=== PATIENT | female | born 1950 | race Caucasian/White ===

== ENCOUNTER → 2016-07-01 | Day surgery (SDC) | payer OTHER ==
[2016-06-30 10:26] VITALS: Ht 161.3 cm; Wt 112.7 kg
[~2016-07-01] VITALS: Ht 161.3 cm; Wt 112.7 kg
[~2016-07-01] MED LIST: ACET-749 PO; ACETAMINOPHEN/CODEINE 300/30MG TAB PO PRN; AMOX500C3 PO; ATROPINE SULFATE 0.1 MG/ML 5ML SYR IV PRN; BRIM0.1S OPR; BUPIVACAINE 0.5 % 5 MG/1 ML MPF 30ML VIAL ONE; CEFAZOLIN 2000 MG/60 ML D5W 60 ML IV SCH; CHOL2000 PO; CITA20TA PO; FENTANYL CITRATE INJ 50 MCG/1 ML 2 ML VIAL IV PRN; FENTANYL CITRATE INJ 50 MCG/1 ML 2 ML VIAL ONE; FERR325T5 PO; FLUT0.15 NAE; FLUT1INH INH; FURO-85 PO; IBUP-1050 PO; INSDGI SC; IPRASOL4 INH; LACTATED RINGER'S 1000ML 1,000 ML IV SCH; LIDOCAINE HCL 2% LOCAL 20 ML VIAL ONE; LOSA50TA6 PO; LOVA20TA4 PO; MECL1TAB40 PO; MELO15TA4 PO; METF1000 PO; MIDAZOLAM HCL 1 MG/ML 2ML VIAL ONE; MONT1TAB5 PO; MULTTAB58 PO; OMEP40CA41 PO; ONDA4TAB46 PO; ONDANSETRON INJ 2 MG/ML 2 ML VIAL IV PRN; PROPOFOL IV EMULSION 10 MG/ML 20 ML VIAL IV ONE; SODIUM CHLORIDE 0.9% 1000ML 1,000 ML IV SCH; TERA1CAP63 PO; TIMO0.05 OPR; TIZA4CAP PO; TRAV0.00 OPR; VALA1TAB2 PO
--- NOTE | 2016-07-01 06:57 | History & Physical Bridge - [place] ---
H&P Re-Evaluation Bridge Note: I have examined the patient, reviewed the History & Physical and in the interval since the performance of the History & Physical I have noted the following changes of clinical significance: No changes noted
--- NOTE | 2016-07-01 08:19 | [facility] Post Operative Brief Note ---
Immediate Operative Summary Operative Date Jul 01, 2016. Pre-Operative Diagnosis Left Long Trigger Finger Release Post-Operative Diagnosis same Procedure(s) Performed Left Long Trigger Finger Release Surgeon Dr. Myriam Bauer [employer] Surgeon(s) Vinicio Hugo PA-C Estimated Blood Loss minimal Findings Left Long Trigger Finger Specimens none Anesthesia Local with IV Sedation Complication(s) None Disposition Recovery Room / PACU
--- NOTE | 2016-07-01 08:23 | Discharge Instructions-SurgCtr ---
Discharge Instructions Visit Reason for Visit: Acquired Left Long Trigger Finger Discharge Discharge Diagnosis / Problem: left long finger trigger finger Discharge Goals Goal(s): Decrease discomfort, Therapeutic intervention Medications Stopped Medications Name(s): metformin stopped. last dose on wednesday morning. Activity Recommendations limited use of left hand Anesthesia . Post Anesthesia Instructions: If you have had General Anesthesia or IV Sedation: * Do not drive today. * Resume driving when surgeon permits. * Do not make important decisions or sign legal documents today. * Call surgeon for: 1. Temperature elevations greater than 101 degrees F. 2. Uncontrollable pain. 3. Excessive bleeding. 4. Persistent nausea and vomiting. 5. Medication intolerance (nausea, vomiting or rash). * For nausea and vomiting use only clear liquids such as: tea, soda, bouillon until nausea subsides, then gradually increase diet as tolerated. * If you have any concerns or questions, call your surgeon's office. If physician is unavailable and it is an emergency, call 911 or go to the nearest emergency room. . Instructions / Follow-Up Instructions / Follow-Up MEDICATIONS: * Resume previous medications unless instructed otherwise by your surgeon. * Always take pain medication on a full stomach or with food to avoid upset stomach. * Do not drink alcohol or drive while taking narcotics. * Ibuprofen or Tylenol may be taken if narcotic not needed. SPECIAL CARE INSTRUCTIONS: __ None __ Keep extremity elevated and iced x 48 hours; apply ice 20-30 minutes 8-10 times/day. May remove at night. __ Sling __24 hrs/day __ Remove at night __ Shoulder Immobilizer __ 24 hrs/day __ Remove at night _x_ Dressing _x_ Maintain until seen in office, may shower with plastic over site __ Remove dressings in 24-48 hours and then may shower __ Cover incisions with band-aids after showering __ Do not remove steri-strips Call physician if chills or temperature rises above 102 degrees or pain unrelieved by prescribed pain medications at . . follow up 2 weeks Diet Recommendations Home Diet: resume previous diet Procedures Procedures Performed: Left Long Trigger Finger Release Pending Studies Studies pending at discharge: no Medical Emergencies . Who to Call and When: Medical Emergencies: If at any time you feel your situation is an emergency, please call 911 immediately. . Non-Emergent Contact Non-Emergency issues call your: Primary Care Provider, Surgeon . . "Provider Documentation" section prepared by Nav Hugo.
[2016-07-01 08:24] VITALS: TEMP 36.4
--- NOTE | 2016-07-01 08:49 | Anesthesia Progress Nt - [facility] ---
Anesthesia Post Op Note Date & Time Jul 01, 2016 at 08:49 Vital Signs Pain Intensity: 0 Vital Signs Past 12 Hours Date Time Temp Pulse Resp B/P Pulse Ox O2 Delivery O2 Flow Rate FiO2 07/01/16 08:24 36.4 81 16 161/77 94 Room Air 07/01/16 06:43 37.1 73 18 147/82 95 Room Air Notes Mental Status: alert / awake / arousable, participated in evaluation Pt Amnestic to Procedure: Yes Nausea / Vomiting: adequately controlled Pain: adequately controlled Airway Patency, RR, SpO2: stable & adequate BP & HR: stable & adequate Hydration State: stable & adequate Anesthetic Complications: no major complications apparent
[2016-07-01 08:50] VITALS: BP 154/84; PULSE 70; O2SAT 95
--- NOTE | 2016-07-01 09:07 | OPERATIVE REPORT ---
DATE OF OPERATION: 07/01/2016 SURGEON: Prabhu Bauer MD BACKUP ADMINISTRATIVE COORDINATOR: JUSTICE Holland PREOPERATIVE DIAGNOSIS: Left long trigger finger. POSTOPERATIVE DIAGNOSIS: Same. PROCEDURE PERFORMED: Left long trigger finger/A1 juan daniel release. COMPLICATIONS: None. ESTIMATED BLOOD LOSS: Minimal. TOURNIQUET TIME: 5 minutes at 250 mmHg. ANESTHESIA: Local with IV sedation. OPERATIVE INDICATIONS: The patient is a 66-year-old female diabetic patient who had a history of carpal tunnel problems as well as trigger finger problems in the past. She has undergone bilateral carpal tunnel releases in the past and had trigger finger release in the past as well. She developed pain, discomfort, and locking of her long finger. She had no interest in further conservative treatment and elected to proceed with operative treatment of her trigger finger of the long finger. OPERATIVE PROCEDURE: The patient was taken to the operating room, identified and placed on the operating table in supine position. All contact areas were appropriately padded. IV antibiotics provided by anesthesia team. A left forearm tourniquet was placed. Some IV sedation was provided. 8 mL of 50:50 combination of 0.5% Marcaine and 2% lidocaine were then injected in and around the proposed incision site. The left hand was then prepped and draped in usual sterile fashion. The left arm was elevated and exsanguinated with Esmarch and tourniquet was placed at 250 mmHg. A transverse incision was made in the palm at the base of the long finger in between the proximal and distal palmar creases. Blunt dissection was carried through the subcutaneous tissue directly down the flexor tendon sheath. The flexor tendon sheath was cleaned of soft tissues. The A1 juan daniel was identified and transected with the use of scissors and then bluntly spread. The finger was then taken through an active and active assisted range of motion. There was no further catching or locking. Attention was then drawn toward closing. The wound was irrigated with copious amounts of normal saline. The tourniquet was let down for a tourniquet time of 5 minutes. Hemostasis was assured with use of electrocautery. The skin was then closed with 5-0 nylon suture in a horizontal mattress fashion. The hand was then cleaned and dried and a sterile dressing of Xeroform, 4 x 4, sterile cast padding and Farhat bandage were applied. The patient was then transferred to the recovery room in stable condition. The patient tolerated the procedure well with no complications. All needle and sponge counts were correct at the end of the operation. I attest to the content of the Intraoperative Record and any orders documented therein. Any exceptions are noted below. MTDD
== END | disposition home or self-care (01) ==
LOC: X.SURG 06:25
PROVIDERS: ATTEND Orthopaedic Surgery Sports Medicine
DX: M65.332 Trigger finger, left middle finger (principal); E03.9 Hypothyroidism, unspecified; E11.9 Type 2 diabetes mellitus without complications; I10 Essential (primary) hypertension; J45.909 Unspecified asthma, uncomplicated; I78.0 Hereditary hemorrhagic telangiectasia

== ENCOUNTER 2017-06-20 17:30 | Emergency (ER) | payer OTHER ==
[~2017-06-20] VITALS: Ht 161.3 cm; Wt 120.2 kg
[~2017-06-20 17:30] MED LIST changes: -ACET-749 PO; -ACETAMINOPHEN/CODEINE 300/30MG TAB PO PRN; -ATROPINE SULFATE 0.1 MG/ML 5ML SYR IV PRN; -BUPIVACAINE 0.5 % 5 MG/1 ML MPF 30ML VIAL ONE; -CEFAZOLIN 2000 MG/60 ML D5W 60 ML IV SCH; -FENTANYL CITRATE INJ 50 MCG/1 ML 2 ML VIAL IV PRN; -FENTANYL CITRATE INJ 50 MCG/1 ML 2 ML VIAL ONE; -IBUP-1050 PO; -LACTATED RINGER'S 1000ML 1,000 ML IV SCH; -LIDOCAINE HCL 2% LOCAL 20 ML VIAL ONE; +MELO-84 PO; -MELO15TA4 PO; -MIDAZOLAM HCL 1 MG/ML 2ML VIAL ONE; -ONDANSETRON INJ 2 MG/ML 2 ML VIAL IV PRN; -PROPOFOL IV EMULSION 10 MG/ML 20 ML VIAL IV ONE; -SODIUM CHLORIDE 0.9% 1000ML 1,000 ML IV SCH
[2017-06-20 17:31] VITALS: TEMP 36.7; Ht 161.3 cm; Wt 120.2 kg
[2017-06-20] MEDS ORDERED: XYLOCAINE 1%/SOD BICARB 20 ML VIAL INFIL STA (17:48)
--- NOTE | 2017-06-20 18:35 | DIAGNOSTIC IMAGING REPORT ---
HEAD CT NONCONTRAST CT DOSE: 877.40 mGy.cm HISTORY: Fall, head and nose pain TECHNIQUE: Multiaxial CT images of the head were performed without the use of intravenous contrast. Automated exposure control was utilized for this study. A dose lowering technique was utilized adhering to the principles of ALARA. Comparison: None. Findings: The paranasal sinuses and mastoid air cells are clear. The calvarium and skull base are intact. There is no mass, hematoma, midline shift, acute infarct. White matter hypodensity is nonspecific but suggestive of microvascular ischemic change. The ventricles and sulci demonstrate mild age-related involutional changes. Soft tissue swelling and a small laceration at the nasal bridge. Impression: No acute intracranial abnormality. Soft tissue swelling and a small laceration at the nasal bridge. Electronically signed by: Luan Ospina M.D. 06/20/2017 6:33 PM Dictated Date/Time: 06/20/2017 6:30 PM
--- NOTE | 2017-06-20 18:38 | DIAGNOSTIC IMAGING REPORT ---
MAXILLOFACIAL CT CT DOSE: HISTORY: Fall, head and nose pain TECHNIQUE: Multiaxial CT images of the maxillofacial region were performed and reformatted in the coronal plane without the use of contrast. A dose lowering technique was utilized adhering to the principles of ALARA. COMPARISON: None. FINDINGS: The visualized cervical spine, skull base, pterygoid plates, lamina papyracea, orbital floors, mandible, and zygomatic arches are intact. No fractures. The orbits are unremarkable. Soft tissue swelling and a small laceration at the nasal bridge. Nondisplaced fracture the tip of the nasal bones. IMPRESSION: 1. Nondisplaced nasal bone fracture. 2. Soft tissue swelling and a small laceration at the nasal bridge. Electronically signed by: Luan Ospina M.D. 06/20/2017 6:37 PM Dictated Date/Time: 06/20/2017 6:34 PM
--- NOTE | 2017-06-20 19:11 | EMERGENCY ROOM VISIT NOTE ---
History First contact with patient: 17:40 Chief Complaint: FALL Stated Complaint: FELL ON NOSE History of Present Illness Chief Complaint: "Fell on nose". This patient is a 67 year old female who presents to the Emergency Department via private vehicle accompanied by female for evaluation of their nasal bridge laceration. Patient sustained the laceration while attempting to descend a grassy area when she tripped, fell landing on her face. They report a minimal amount of bleeding initially. They report no loss of consciousness. They deny any headache, visual disturbance, nausea, vomiting, or neck pain. Patient rates her current discomfort as a 5/10. Patient's Tetanus status is currently up-to- date. Review of Systems A complete 6-point Review of Systems was discussed with the patient, with pertinent positives and negatives listed in the History of Present Illness. All remaining Review of Systems questions can be considered negative unless otherwise specified. Past Medical/Surgical History Medical Problems: (1) Cataract (2) Depression (3) Diabetes (4) Dyslipidemia (5) Gastroparesis (6) GERD (gastroesophageal reflux disease) (7) Hypertension (8) Sensorineural hearing loss (9) Sleep apnea Surgical Problems: (1) H/O parathyroidectomy (2) History of appendectomy (3) History of arthroplasty of right knee (4) History of carpal tunnel release (5) History of cholecystectomy (6) History of mastectomy, subtotal (7) History of tonsillectomy and adenoidectomy (8) History of tubal ligation Family History Cancer Diabetes mellitus Hypertension Seizures Social History Smoking Status: Never Smoker Alcohol Use: none Drug Use: none Marital Status: Housing Status: lives with significant other Occupation Status: unemployed Current/Historical Medications Scheduled Brimonidine Tartrate (Alphagan P Oph), 1 DROP OPR BID Cephalexin Monohydrate (Keflex), 500 MG PO TID Cholecalciferol (Vitamin D3), 1 CAP PO BID Citalopram (Citalopram), 20 MG PO HS Ferrous Sulfate (Ferrous Sulfate), 1 TAB PO BID Furosemide (Lasix), 0.5 TAB PO QAM Insulin Glargine (Lantus), 30 UNITS SC HS Losartan Potassium (Cozaar), 50 MG PO HS Lovastatin (Mevacor), 20 MG PO HS Metformin Hcl (Glucophage), 1,000 MG PO BID Montelukast Sodium (Montelukast Sodium), 10 MG PO HS Multiple Vitamin (Multivitamin), 1 TAB PO QAM Omeprazole (Prilosec), 40 MG PO BID Terazosin Hcl (Hytrin), 10 MG PO HS Timolol Maleate (Ophth) (Timoptic 0.25% Oph), 1 DROP OPR QAM Travoprost (Travatan Z), 1 DROPS OPR HS Scheduled PRN Amoxicillin (Amoxil), 4 TABS PO UD PRN for DENTAL PROCEDURES Fluticasone Furoate-Vilanterol (Breo Ellipta), 1 PUFF INH HS PRN for Shortness of Breath Fluticasone Propionate (Nasal) (Flonase Allergy Relief), 2 SPRY SHALONDA DAILY PRN for ALLERGIES Ipratropium-Albuterol (Duoneb), 1 TREATMENT INH Q6H PRN for SOB/Wheezing Meclizine Hcl (Meclizine Hcl), 1 TAB PO TID PRN for VERTIGO Meloxicam (Mobic), 15 MG PO DAILY PRN for Muscle Spasms Ondansetron Hcl (Zofran), 4 MG PO Q4H PRN for Nausea Tizanidine Hcl (Zanaflex), 4 MG PO Q4-6H PRN for Muscle Spasms Valacyclovir Hcl (Valtrex), 1,000 MG PO UD PRN for COLD SORES Physical Exam Vital Signs Date Time Temp Pulse Resp B/P (MAP) Pulse Ox O2 Delivery O2 Flow Rate FiO2 06/20/17 19:25 85 18 176/99 95 06/20/17 17:31 36.7 91 18 202/117 97 Room Air Physical Exam VITAL SIGNS - Vital signs and nursing notes were reviewed. Hypertensive, I believe secondary to situation. GENERAL -67-year-old female appearing her stated age. Communicates well with provider and answers questions appropriately. SKIN - There is a 2 cm laceration noted to the bridge of the nose in the horizontal plane. The edges gape apart with traction. There is no active bleeding appreciated. No deep structures including vessels, musculature, or bony structures are appreciated. Abrasions are also noted to the patient's distal nose as well as her chin. HEAD - Normocephalic. No King's Sign or Raccoon's Eyes. No depressed skull fractures palpable. EYES - PERRL with EOMI bilaterally. Without subconjunctival hemorrhage. Palpebral conjunctiva pink and moist with no injection. EARS - No deformities of external structures noted on gross examination bilaterally. No hemotympanum present. No tympanic perforation noted. NOSE - Midline and without cyanosis. No epistaxis or clear watery discharge noted. Septum midline without deviation. No septal hematoma noted. No overlying ecchymosis noted. MOUTH/OROPHARYNX - Without perioral cyanosis. Tongue midline with equal elevation of palate bilaterally. No blood noted in the oropharynx. No tonsillar hypertrophy, erythema, or exudates noted. No dental fractures noted. NECK - FROM assessed. No tenderness to palpation over the cervical spinous processes. No cervical paraspinal muscle tenderness noted. LUNGS - Chest wall symmetric without accessory muscle use, intercostals retractions, or central cyanosis. Normal vesicular breath sounds CTA B/L. No wheezes, rales, or rhonchi appreciated. CARDIAC - RRR with S1/S2. No murmur, rubs, or gallops appreciated. EXTREMITIES - No gross deformities noted of the extremities. +5/5 strength noted in UE/LE bilaterally. NEUROLOGIC - Cranial nerves II through XII grossly intact. PSYCH - A&Ox3 and cooperates fully with examiner. Pt is very pleasant and interacts well with examiner. Medical Decision & Procedures ER Provider Diagnostic Interpretation: HEAD CT NONCONTRAST CT DOSE: 877.40 mGy.cm HISTORY: Fall, head and nose pain TECHNIQUE: Multiaxial CT images of the head were performed without the use of intravenous contrast. Automated exposure control was utilized for this study. A dose lowering technique was utilized adhering to the principles of ALARA. Comparison: None. Findings: The paranasal sinuses and mastoid air cells are clear. The calvarium and skull base are intact. There is no mass, hematoma, midline shift, acute infarct. White matter hypodensity is nonspecific but suggestive of microvascular ischemic change. The ventricles and sulci demonstrate mild age-related involutional changes. Soft tissue swelling and a small laceration at the nasal bridge. Impression: No acute intracranial abnormality. Soft tissue swelling and a small laceration at the nasal bridge. Electronically signed by: Luan Ospina M.D. 06/20/2017 6:33 PM Dictated Date/Time: 06/20/2017 6:[address] DOSE: HISTORY: Fall, head and nose pain TECHNIQUE: Multiaxial CT images of the maxillofacial region were performed and reformatted in the coronal plane without the use of contrast. A dose lowering technique was utilized adhering to the principles of ALARA. COMPARISON: None. FINDINGS: The visualized cervical spine, skull base, pterygoid plates, lamina papyracea, orbital floors, mandible, and zygomatic arches are intact. No fractures. The orbits are unremarkable. Soft tissue swelling and a small laceration at the nasal bridge. Nondisplaced fracture the tip of the nasal bones. IMPRESSION: 1. Nondisplaced nasal bone fracture. 2. Soft tissue swelling and a small laceration at the nasal bridge. Electronically signed by: Luan Ospina M.D. 06/20/2017 6:37 PM Dictated Date/Time: 06/20/2017 6:34 PM Medications Administered Medications (Trade) Dose Ordered Sig/Shruthi Route Start Time Stop Time Status Last Admin Dose Admin Cephalexin Monohydrate (Keflex 500MG Home Pack) 1 homepack NOW STAT PO 06/20/17 19:18 06/20/17 19:19 DC 06/20/17 19:25 1 HOMEPACK Medical Decision Patient was seen and evaluated by myself. Patient had no focal neurological deficits. Patient's exam is otherwise unremarkable. Patient reports no headaches , visual disturbances, nausea, vomiting, or over-lethargy. However, given the mechanism of injury I we'll recommend CT scan of the patient's head and face. Results as above. Risks and benefits of performing primary wound closure versus no repair were discussed with the patient who verbalizes understanding. Verbal consent was obtained prior to performing the procedure. 2 cc of 1% buffered lidocaine was used to anesthetize the 2 cm laceration. The wound was cleansed and prepped in the typical sterile fashion utilizing normal saline and Betadine. The wound was sterilely draped. Once proper anesthetization was established, the wound was further examined and demonstrated no deep involvement. The wound was copiously irrigated with normal saline and Betadine. The wound was closed using 3 simple, 6-0 nylon sutures with the wound edges being well approximated. Patient tolerated the procedure well. No complications were met. The wound was cleansed and dressed with a Bacitracin dressing. Patient educated on worrisome symptoms for return visit to the Emergency Department. Patient discharged to home in good condition. Because of the fracture underlying I will recommend Keflex. In the evaluation and treatment of this patient, the following differential diagnoses were considered: Concussion, Contrecoup Injury, Brain Tumor, Depression, Encephalitis, Hypothyroidism, Meningitis, CVA, TIA, Migraine, Cluster Headache, Intracranial Abnormality, Intracranial Hemorrhage, Subdural Hematoma, Subarachnoid Hemorrhage, Hydrocephalus. Impression Primary Impression: Fall Additional Impressions: Contusion of multiple sites Laceration Nasal bone fracture Departure Information Dispostion Home / Self-Care Condition GOOD Prescriptions Cephalexin Monohydrate (Keflex) 500 Mg Cap 500 MG PO TID for 7 Days, #21 CAP Prov: Hugo De Santiago PA-C 06/20/17 Referrals Génesis Sandhu D.O. (PCP) Patient Instructions My [facility] Additional Instructions Discharge Instructions: You have received 3 sutures on your nose. These sutures are NOT dissolvable and WILL need to be removed by a health care provider in 6 days. You can return to the Emergency Department or contact your Primary Care Provider to have the sutures removed. ENT (ear nose and throat dr) follow up for nose (Dr. parrish) please call tomorrow for nose fracture Keflex 500mg every 8 hours to help prevent infection of nose. Proper wound care is essential for adequate wound healing and infection prevention. You can shower and clean the wound with soap and water. Do not scour over the wound, pat dry with a towel. Do not submerse the wound (i.e. bathe or dish wash) until the sutures have been removed. You can use an antibiotic ointment with a dressing over the wound for the next 2-3 days. After this time you may leave the wound dry and open to the air. If crust develops over the wound you can use a Q-tip to apply a 1:1 peroxide:water solution to clean the wound. Look for signs of infection of the wound including: increased pain, swelling, foul discharge, streaking, or increased temperature. If any of these are noticed you should return to the Emergency Department for further assessment and treatment. As with any laceration you may have received nerve damage to the surrounding tissues. This damage may or may not be permanent. You should keep the area covered with sunscreen for the first 6 months to 1 year when at risk for exposure to help minimize scarring. You can also use scar reducing creams or Vitamin E oil to help minimize scarring. For pain control, you can use the following [id number] medicines (if >12 yo): - Regular strength (325mg/tab) Tylenol (acetaminophen) 2 tabs every 4-6 hours as needed. Do not exceed 12 tablets in a 24 hour period. Avoid taking more than 3 grams (3000 mg) of Tylenol per day. This includes any other sources of acetaminophen you may take on a regular basis. Return to the emergency department if your symptoms worsen despite treatment course outlined above. Problem Qualifiers
[2017-06-20] MEDS ORDERED: CEPHALEXIN 500MG HOME PACK 1 EA BTL PO STA (19:18)
[2017-06-20] MEDS ORDERED: CEPH500C PO (19:20)
[2017-06-20 19:25] VITALS: BP 176/99; PULSE 85; O2SAT 95
--- NOTE | 2017-06-20 19:42 | EMERGENCY ROOM VISIT NOTE ---
ED Visit Note First contact with patient: 17:40 This Patient was discussed with the physician registered medical assistant, Hugo De Santiago PA-C. The pertinent historical and physical exam findings were confirmed. I agree with the studies ordered and with the interpretations of these studies. I agree with the disposition and care plan.
== END 2017-06-20 19:46 | disposition home or self-care (01) ==
LOC: C.EDB 17:31 → C.EDD 19:46
DX: S00.81XA Abrasion of other part of head, initial encounter (principal); S00.31XA Abrasion of nose, initial encounter; S01.21XA Laceration without foreign body of nose, initial encounter; S02.2XXA Fracture of nasal bones, initial encounter for closed fracture; W01.0XXA Fall on same level from slipping, tripping and stumbling without subsequent striking against object, initial encounter; H26.9 Unspecified cataract; F32.9 Major depressive disorder, single episode, unspecified; E78.5 Hyperlipidemia, unspecified; K21.9 Gastro-esophageal reflux disease without esophagitis; I10 Essential (primary) hypertension; E11.43 Type 2 diabetes mellitus with diabetic autonomic (poly)neuropathy; Z90.10 Acquired absence of unspecified breast and nipple; Z90.49 Acquired absence of other specified parts of digestive tract; Z98.51 Tubal ligation status; Z79.4 Long term (current) use of insulin; Z79.84 Long term (current) use of oral hypoglycemic drugs; Z83.3 Family history of diabetes mellitus; Z82.49 Family history of ischemic heart disease and other diseases of the circulatory system; Z82.0 Family history of epilepsy and other diseases of the nervous system

== ENCOUNTER 2025-03-12 14:07 | Inpatient (IN) ==
--- NOTE | 2025-03-12 14:25 | Emergency Department Note ---
Impression & Plan Atrial fibrillation with rapid ventricular response, Demand ischemia, Elevated troponin, Dizziness ED Provider Note NAME: DUC ECHOLS AGE: 74 SEX: F : 1950 ARRIVES VIA: Walk-In INFORMANT: Patient, ED PROVIDER(S): Hans Hernandez MD CHIEF COMPLAINT: Dizziness, A-fib, outpatient referral MEDICAL DECISION MAKING: Patient presents due to concern for tachycardia and outpatient A-fib and was referred here. IV was established and blood work is obtained. Patient was ordered IV Lopressor. EKG without signs of obvious ischemia. Patient's blood work today shows a normal white count hemoglobin of 10. No priors for comparison. Platelet count is unremarkable. Kidney function with prerenal azotemia. Calcium slightly elevated magnesium slightly low. Patient was ordered 1 g of IV magnesium for replacement. Patient's IV Lopressor did help with the patient's rate from the 140s and 150s down into the 90s. Patient's troponin is 137 likely demand ischemia from the patient's rate as this may have been ongoing since Wednesday. I did speak with the on-call hospitalist service Dr. Navarro and the patient was admitted to the medicine service. Critical Care: I have personally spent 45 minutes of critical care time in direct management of this patient. This includes bedside care, interpretation of diagnostic studies, and testing, discussion with consultants, patient, and family members, and other require inpatient management activities. This 45 minutes is in excess of all separately billable procedures. Discussion w/ other healthcare providers: Marybeth Ward PA-C with Dr. Navarro Prior /Outside records reviewed: None Differential diagnosis: Dehydration, hypovolemia, anemia, infection, hypoglycemia, electrolyte abnormalities, arrhythmia, tox among others were considered. Diagnostics, as interpreted by me: ECG: A-fib RVR, rate 148, normal QRS duration, left axis deviation no obvious STEMI. Repeat EKG interpreted by myself A-fib, rate of 97, normal QRS duration, left axis deviation no obvious STEMI. Cardiac monitoring: An order was placed for continuous cardiac monitoring. The monitor shows a rate of 145 with irregularly irregular rhythm. Patient was placed on pulse oximetry Medical decision rules: None Imaging studies: I informally interpreted the patient's chest x-ray does not show evidence of obvious pneumonia with formal report to follow. HPI: Patient presents due to concern for lightheadedness and dizziness. The patient was reportedly seen at [facility] and referred here due to concerns for A-fib. No prior history of this. The patient states that she began having symptoms on Wednesday when she had some palpitations lightheadedness and dizziness with some shortness of breath. No chest pains. Patient denies any abdominal pain or nausea vomiting. Patient does have a history of asthma and did state that the room that she was be carrots and was quite warm. The patient did not use her rescue inhaler but does use a Rommel. Patient denies any falls or trauma. No vomiting or diarrhea. Patient reports that she cannot take a blood thinner or aspirin as she has a history of Opchj-[id number]-Boesh. PAST MEDICAL HISTORY: See Below PAST SURGICAL HISTORY: See Below SOCIAL HISTORY: See Below HOME MEDICATIONS: See Below ALLERGIES: See Below VITALS: See Below PHYSICAL EXAMINATION: GENERAL: NAD, non-toxic. EYE EXAM: Normal conjunctiva. PERRL, no anisocoria and EOM's grossly intact w/o pain. OROPHARYNX: Moist mucus membranes, grossly normal dentition. NECK: Trachea midline, no stridor. LUNGS: Clear to auscultation. Normal chest wall mechanics. HEART: Irregularly irregular and tachycardic, no MRG. ABDOMEN: Abdomen soft, non-tender, no masses, no rebound or guarding. BACK: No CVA TTP. SKIN: No rashes and no bruising. UPPER EXTREMITIES: Upper extremities are grossly normal. LOWER EXTREMITIES: Grossly normal, no edema. NEURO EXAM: Awake and alert, follows commands, no obvious facial asymmetry, normal speech, moves all 4 extremities. Past Med/Surg History Problem List HHT (hereditary hemorrhagic telangiectasia) Atrial fibrillation with rapid ventricular response Hypertension (Chronic) Diabetes (Chronic) GERD (gastroesophageal reflux disease) (Chronic) Sensorineural hearing loss (Chronic) Sleep apnea (Chronic) "uses CPAP" Cataract (Chronic) "R eye" Gastroparesis (Chronic) Depression (Chronic) Dyslipidemia (Chronic) Encounter for removal of sutures (Acute) Social History Smoking Status: Never smoker Preferred Language: Macedonian Feels Safe at Home: Yes Allergies Allergies Allergy/AdvReac Type Severity Reaction Status Date / Time aspirin Allergy Unknown OSLER Verified 03/12/25 13:07 BROWN RENDU DISORDER oxycodone AdvReac Unknown vomiting Verified 03/12/25 13:07 cefdinir [From Omnicef] AdvReac NAUSEA AND Verified 03/12/25 16:29 VOMITING cetirizine [From Zyrtec] AdvReac Cough Verified 03/12/25 16:29 Cockroach Allergy Unknown ALLERGY Uncoded 03/12/25 13:07 TESTED - UNSURE REACTION Home Meds Home Medications Medication Instructions Recorded Confirmed escitalopram oxalate 10 mg tablet 10 mg PO QAM 03/04/24 03/12/25 insulin glargine 100 unit/mL (3 50 unit subcut AMPM 03/04/24 03/12/25 mL) subcutaneous pen (Lantus Solostar U-100 Insulin) semaglutide 1 mg/dose (4 mg/3 mL) 1 mg subcut WK 03/04/24 03/12/25 subcutaneous pen injector (Ozempic) tolterodine 4 mg capsule,extended 4 mg PO QAM 03/04/24 03/12/25 release 24 hr atorvastatin 20 mg tablet (Lipitor) 20 mg PO DAILY 03/12/25 03/12/25 azelastine 137 mcg (0.1 %) nasal 1 spray intranasal AMHS 03/12/25 03/12/25 spray brinzolamide 1 %-brimonidine 0.2 % 1 drp OPR TID 03/12/25 03/12/25 eye drops,suspension (Simbrinza) cholecalciferol (vitamin D3) 25 25 mcg PO AMHS 03/12/25 03/12/25 mcg (1,000 unit) capsule (Vitamin D3) ferrous sulfate 325 mg (65 mg 325 mg PO AC 03/12/25 03/12/25 iron) tablet furosemide 20 mg tablet 10 mg PO QAM 03/12/25 03/12/25 ipratropium 0.5 mg-albuterol 3 mg 3 ml inhalation .EVERY 4-6 HOURS 03/12/25 03/12/25 (2.5 mg base)/3 mL nebulization PRN COUGHING,WHEEZING OR SOB soln ipratropium 20 mcg-albuterol 100 1 puff inhalation Q6 PRN 03/12/25 03/12/25 mcg/actuation mist for inhalation wheezing,cough or SOB (Combivent Respimat) losartan 100 mg tablet (Cozaar) 100 mg PO DAILY 03/12/25 03/12/25 metformin 1,000 mg tablet 1,000 mg PO BIDM 03/12/25 03/12/25 metoprolol succinate 25 mg 25 mg PO QAM 03/12/25 03/12/25 tablet,extended release 24 hr montelukast 10 mg tablet 10 mg PO QAM 03/12/25 03/12/25 multivit-iron 18 mg-folic acid 400 1 tab PO DAILY 03/12/25 03/12/25 mcg-calcium 500 mg-minerals tablet (Daily Multiple For Women) netarsudil 0.02 % eye drops 1 drp OPR QPM 03/12/25 03/12/25 (Rhopressa) pantoprazole 40 mg tablet,delayed 40 mg PO DAILYBB 03/12/25 03/12/25 release prednisone 10 mg tablet 5 mg PO QAM 03/12/25 03/12/25 terazosin 10 mg capsule 10 mg PO HS 03/12/25 03/12/25 timolol maleate 0.25 % eye drops 1 drp OPR QAM 03/12/25 03/12/25 trazodone 50 mg tablet 50 mg PO HS 03/12/25 03/12/25 umeclidinium 62.5 mcg-vilanterol 1 ea inhalation DAILY 03/12/25 03/12/25 25 mcg/actuation powdr for inhalation (Anoro Ellipta) valacyclovir 1 gram tablet 1,000 mg PO Q12 PRN COLDSORES 03/12/25 03/12/25 (Valtrex) Results & Data (ED) Vital Signs Vital Signs - 24 hr 03/12/25 14:10 03/12/25 14:28 03/12/25 14:28 Temperature 36.6 C Temperature Source Temporal Artery Scan Pulse Rate 158 H Pulse Rate [Apical] 142 H Pulse Rhythm [Apical] Regular Pulse Strength [Apical] Normal Respiratory Rate 20 19 Respiratory Effort / Characteristics Non-Labored Spontaneous Non-Labored Spontaneous Respiratory Depth Normal Normal Respiratory Pattern Regular Regular Blood Pressure 128/73 Blood Pressure [Left Arm] 121/83 Blood Pressure Mean 91 Blood Pressure Mean [Left Arm] 95 Blood Pressure Position [Left Arm] Sitting Pulse Oximetry 95 94 94 Oxygen Delivery Method Room Air Room Air Room Air Sepsis Recent Fever Within 48 Hours No Sepsis New/Unexplained Change in Mental Status N/A Sepsis Action Taken by Nursing No Action Required 03/12/25 14:33 03/12/25 14:34 03/12/25 14:49 Temperature Temperature Source Pulse Rate 151 H 142 H 117 H Pulse Rate [Apical] Pulse Rhythm [Apical] Pulse Strength [Apical] Respiratory Rate Respiratory Effort / Characteristics Respiratory Depth Respiratory Pattern Blood Pressure 121/83 131/97 Blood Pressure [Left Arm] Blood Pressure Mean Blood Pressure Mean [Left Arm] Blood Pressure Position [Left Arm] Pulse Oximetry Oxygen Delivery Method Sepsis Recent Fever Within 48 Hours Sepsis New/Unexplained Change in Mental Status Sepsis Action Taken by Nursing 03/12/25 14:54 03/12/25 15:09 03/12/25 15:13 Temperature Temperature Source Pulse Rate 101 H 92 H 97 H Pulse Rate [Apical] Pulse Rhythm [Apical] Pulse Strength [Apical] Respiratory Rate Respiratory Effort / Characteristics Respiratory Depth Respiratory Pattern Blood Pressure 131/97 103/64 111/61 Blood Pressure [Left Arm] Blood Pressure Mean Blood Pressure Mean [Left Arm] Blood Pressure Position [Left Arm] Pulse Oximetry Oxygen Delivery Method Sepsis Recent Fever Within 48 Hours Sepsis New/Unexplained Change in Mental Status Sepsis Action Taken by Nursing 03/12/25 16:52 Temperature Temperature Source Pulse Rate Pulse Rate [Apical] 107 H Pulse Rhythm [Apical] Pulse Strength [Apical] Respiratory Rate 20 Respiratory Effort / Characteristics Non-Labored Spontaneous Respiratory Depth Normal Respiratory Pattern Blood Pressure Blood Pressure [Left Arm] 121/92 Blood Pressure Mean Blood Pressure Mean [Left Arm] 101 Blood Pressure Position [Left Arm] Pulse Oximetry 96 Oxygen Delivery Method Room Air Sepsis Recent Fever Within 48 Hours Sepsis New/Unexplained Change in Mental Status Sepsis Action Taken by [facility] Medications Current Medication List: was personally reviewed by me Laboratory Data Attestation: I reviewed the patient's lab results. 03/12/25 14:34 03/12/25 14:34 Lab Results 03/12/25 Range/Units 14:34 WBC 8.50 (4.8-10.8) K/ul RBC 3.86 L (4.20-5.40) M/uL Hgb 10.1 L (12.0-16.0) g/dl Hct 32.0 L (37.0-47.0) % MCV 82.9 (80.0-100.0) fL MCH 26.2 (25.0-34.0) pg MCHC 31.6 L (32.0-36.0) g/dL RDW Std Deviation 45.9 (36.4-46.3) fL RDW Coeff of Colby 15.2 H (11.5-14.5) % Plt Count 240 (130-400) K/uL MPV 10.7 (9.4-12.4) fL Immature Gran % (Auto) 0.1 % Neut % (Auto) 79.4 % Lymph % (Auto) 12.4 % Conway % (Auto) 7.3 % Eos % (Auto) 0.4 % Baso % (Auto) 0.4 % Neut # (Auto) 6.76 H (1.40-6.50) K/uL Lymph # (Auto) 1.05 L (1.20-3.40) K/uL Conway # (Auto) 0.62 H (0.11-0.59) K/uL Eos # (Auto) 0.03 (0.00-0.50) K/uL Baso # (Auto) 0.03 (0.00-0.20) K/uL Immature Gran # (Auto) 0.01 (0.01-0.20) K/uL PT 10.9 (9.0-12.0) Seconds INR 1.0 (0.9-1.1) APTT 24 (21-31) Seconds PTT Ratio 0.9 Sodium 138 (136-145) mmol/L Potassium 4.1 (3.5-5.1) mmol/L Chloride 103 (98-107) mmol/L Carbon Dioxide 22 (21-32) mmol/L Anion Gap 13 H (3-11) BUN 27 H (6-23) mg/dl Creatinine 0.95 (0.6-1.2) mg/dl Est Cr Clr Drug Dosing 61.7 ml/min eGFR 62.09 BUN/Creatinine Ratio 28.4 H (10-20) Glucose 144 H (70-99(Fasting)) mg/dl Calcium 11.1 H (8.6-10.3) mg/dl Magnesium 1.6 L (1.7-2.4) mg/dl Total Bilirubin 0.4 (0.2-1.0) mg/dl AST 18 (13-39) U/L ALT 11 (7-52) U/L Alkaline Phosphatase 86 (34-104) U/L Troponin I High Sens 137.7 H* (0-14) pg/ml Total Protein 6.5 (6.0-8.3) gm/dl Albumin 4.1 (3.4-5.0) gm/dl Globulin 2.4 L (2.5-4.0) gm/dl Albumin/Globulin Ratio 1.7 (0.9-2) TSH 1.017 (0.300-4.500) uIu/ml Administered Medications Magnesium Sulfate/Dextrose (Magnesium Sulfate / D5w) 1 gm in 100 mls @ 50 mls/hr IV Q2H ANTONIO Stop: 03/12/25 20:44 Last Admin: 03/12/25 16:56 Dose: 50 mls/hr Documented By: ARAM Metoprolol Tartrate (Metoprolol Tartrate 1 Mg/Ml Vial) 5 mg IV Q5M PRN PRN Reason: Tachycardia Stop: 04/11/25 14:30 Last Admin: 03/12/25 15:13 Dose: 5 mg Documented By: Admin: 03/12/25 14:54 Dose: 5 mg Documented By: Admin: 03/12/25 14:34 Dose: 5 mg Documented By: ANAM Discontinued Medications Magnesium Sulfate/Dextrose (Magnesium Sulfate / D5w) 1 gm in 100 mls @ 100 mls/hr IV NOW STA Stop: 03/12/25 16:26 Last Infusion: 03/12/25 16:59 Dose: Infused Documented By: Admin: 03/12/25 15:40 Dose: 100 mls/hr Documented By: donovan Imaging Data Radiologist's Impression: Chest X-Ray 03/12/25 15:26 XR chest 1V portable CLINICAL HISTORY: screener for a fib, dizzy, dyspnea COMPARISON STUDY: 03/04/2024 FINDINGS: There is mild cardiomegaly with pulmonary vascular congestion. No consolidation or pleural effusion seen. No pneumothorax. IMPRESSION: Mild CHF. ACT 112: Negative or not required by law. Electronically signed by: Javy Rae M.D. 03/12/2025 3:[address] 11/10/25 16:25 Technique: Axial computed tomography images were obtained of the brain without intravenous contrast. Comparison is made to the prior CT dated 06/20/2017 Findings: There is diffuse cerebral atrophy, within expected limits for the patient's age. Areas of decreased attenuation are seen within the periventricular white matter, likely representing chronic small vessel ischemic disease. There is no definite sign of acute or old infarction. No intracranial hemorrhage is evident. No definite mass lesion is seen on this noncontrast examination. There is no midline shift or other form of herniation. No hydrocephalus is seen. No fracture is identified. The orbits and the visualized paranasal sinuses appear unremarkable. The mastoid air cells appear clear. Impression: 1. Cerebral atrophy and chronic small vessel ischemic disease 2. Otherwise unremarkable noncontrast CT of the brain Electronically signed by Kingston Angulo 03-12-2025 4:52 PM Discharge Plan Visit Data Chief Complaint: Cardiac Assessment Stated Complaint: AFIB, REF BY DOC ED Provider: Hans Hernandez Discharge Problem: Atrial fibrillation with rapid ventricular response, Demand ischemia, Elevated troponin, Dizziness Patient Disposition: Admitted As Inpatient Condition: Good Forms Stand Alone Forms: [facility] Prescriptions Prescriptions: No Action insulin glargine [Lantus Solostar U-100 Insulin] 100 unit/mL (3 mL) insulin pen 50 unit subcut AMPM escitalopram oxalate 10 mg tablet 10 mg PO QAM tolterodine 4 mg capsule,extended release 24hr 4 mg PO QAM Ozempic 1 mg/dose (4 mg/3 mL) pen injector 1 mg subcut WK Rx Instructions: sundays atorvastatin [Lipitor] 20 mg tablet 20 mg PO DAILY losartan [Cozaar] 100 mg tablet 100 mg PO DAILY metformin 1,000 mg tablet 1,000 mg PO BIDM Rx Instructions: take with breakfast and dinner valacyclovir [Valtrex] 1 gram tablet 1,000 mg PO Q12 PRN (Reason: COLDSORES) pantoprazole 40 mg tablet,delayed release (DR/EC) 40 mg PO DAILYBB metoprolol succinate 25 mg tablet extended release 24 hr 25 mg PO QAM umeclidinium-vilanterol [Anoro Ellipta] 62.5-25 mcg/actuation blister with device 1 ea INHALATION DAILY montelukast 10 mg tablet 10 mg PO QAM terazosin 10 mg capsule 10 mg PO HS prednisone 10 mg tablet 5 mg PO QAM Rx Instructions: 1/2 tablet dose furosemide 20 mg tablet 10 mg PO QAM Rx Instructions: 1/2 tablet dose ferrous sulfate 325 mg (65 mg iron) Tablet 325 mg PO AC Rx Instructions: take in morning,noon and evening before meals Combivent Respimat 20-100 mcg/actuation mist 1 puff INHALATION Q6 PRN (Reason: wheezing,cough or SOB) Rx Instructions: USE IN PLACE OF NEBULIZER WHEN AWAY FROM HOME timolol maleate 0.25 % drops 1 drp OPR QAM Simbrinza 1-0.2 % drops,suspension 1 drp OPR TID Rx Instructions: MORNING,NOON AND BEFORE BEDTIME Rhopressa 0.02 % drops 1 drp OPR QPM ipratropium-albuterol 0.5 mg-3 mg(2.5 mg base)/3 mL Solution For Nebulization 3 ml INHALATION .EVERY 4-6 HOURS PRN (Reason: COUGHING,WHEEZING OR SOB) trazodone 50 mg Tablet 50 mg PO HS cholecalciferol (vitamin D3) [Vitamin D3] 25 mcg (1,000 unit) Capsule 25 mcg PO AMHS azelastine 137 mcg (0.1 %) [place],Non-Aerosol 1 spray INTRANASAL AMHS Rx Instructions: administer into each nostril Daily Multiple For Women 18 mg iron-400 mcg-500 mg Ca Tablet 1 tab PO DAILY Referrals Referrals: Génesis Kang DO [Outside Practitioners] -
[2025-03-12] MEDS: METOPROLOL TARTRATE 1 MG/ML VIAL IV PRN (14:34)
[2025-03-12 14:50] LABS: Hematocrit (blood only) 32.0 % (37.0-47.0); Hemoglobin 10.1 g/dl (12.0-16.0); Immature Granulocytes # (auto) 0.01 K/uL (0.01-0.20); Immature Granulocytes % (auto) 0.1 %; Mean Corpuscular Hemoglobin 26.2 pg (25.0-34.0); Mean Corpuscular Volume 82.9 fL (80.0-100.0); Platelet Count 240 K/uL (130-400); RDW Standard Deviation 45.9 fL (36.4-46.3); Red Blood Count 3.86 M/uL (4.20-5.40); White Blood Count 8.50 K/ul (4.8-10.8)
[2025-03-12 15:15] LABS: Alanine Aminotransferase 11.0 U/L (7-52); Albumin Globulin Ratio 1.7 (0.9-2); Albumin Level 4.1 gm/dl (3.4-5.0); Alkaline Phosphatase 86.0 U/L (34-104); Anion Gap 13.0 (3-11); Bilirubin,Total 0.4 mg/dl (0.2-1.0); Blood Urea Nitrogen 27.0 mg/dl (6-23); Calcium 11.1 mg/dl (8.6-10.3); Carbon Dioxide 22.0 mmol/L (21-32); Chloride 103.0 mmol/L (98-107); Creatinine Clr Calc Pharmacy 61.7 ml/min; Globulin 2.4 gm/dl (2.5-4.0); Glucose 144.0 mg/dl (70-99(Fasting)); Magnesium 1.6 mg/dl (1.7-2.4); Potassium 4.1 mmol/L (3.5-5.1); Sodium 138.0 mmol/L (136-145); Total Protein 6.5 gm/dl (6.0-8.3)
[2025-03-12 15:23] LABS: INR 1.0 (0.9-1.1); Partial Thromboplastin Time 24 Seconds (21-31); Prothrombin Time 10.9 Seconds (9.0-12.0)
[2025-03-12] MEDS: MAGNESIUM SULFATE / D5W 1 GM/100 ML BAG IV STA (15:40)
--- NOTE | 2025-03-12 15:45 | History & Physical Report ---
Date of Service March 12, 2025 Assessment & Plan (1) Atrial fibrillation with rapid ventricular response: (2) HHT (hereditary hemorrhagic telangiectasia): (3) Hypertension: (4) Dyslipidemia: (5) Sleep apnea: (6) Diabetes: (7) Depression: (8) H/O parathyroidectomy: Plan: Patient is a 74 year old F with a past medical history of Type II DM, acquired hypothyroidism, dyslipidemia, JANE, asthma, hereditary hemorrhagic telangiectasia, HTN, nonrheumatic MV stenosis, Chronic diastolic HF, paroxysmal SVT, morbid obesity, presenting with dizziness, lightheadedness. Symptoms began Wednesday and continued to the next day with shortness of breath, nausea, hea dache, double vision, increased urination, and mild confusion. Patient is on insulin and her blood sugar was normal at the time. She thought her shortness of breath was related to be carrots, as she was also feeling hot at the time, and thought her symptoms related to asthma. Today, she went to [facility] and sent here for concerns of Afib. History of HHT and without anticoagulation. Atrial Fibrillation with RVR, new onset * Admit to PCU Tele for additional workup and management new onset Afib * Dizziness, lightheaded, headache, focal symptoms, SOB, nausea-> EKG showing Af ib RVR, rate 148, QTc 467; Metoprolol 5mg given x 3 per ED provider; repeat EKG with improved rate control at 97 bpm, still in Afib, QTc 408 * Cardiology consult placed- discussed case with Dr. Navarro who recommended starting Metoprolol tartrate 25 mg Q6H for rate control-> first dose scheduled for 1800 today; hold anticoagulation for hx HHT (see below) * Trop elevated to 137 most likely demand ischemia d/t symptomatic x 2 days-> repeat Trop 165; no chest pain * Echo ordered and results pending * CT head ordered for history focal symptoms-> CT Head w/o contrast showed Cerebral atrophy and chronic small vessel ischemic disease * Cardiology to follow and appreciate additional recs #Hereditary hemorrhagic telangiectasia * CHADS-VASC score 6 * Anticoagulation contraindicated d/t hx HHT; no active bleeding currently; Hgb 10.1 today and at baseline * DVT prophylaxis via SCDs d/t high risk GI bleed * Trend CBC in the morning #Hypomagnesemia * Mag 1.6 and replaced with 1 gm by ED; additional 2 gm Mag Sulfate ordered for goal Mag >2. * Will trend with AM labs and replace as needed for goal Mag >2 #Diastolic HF * Chest Xray showing mild CHF; no cough or swelling * Continue home lasix * Echo ordered and pending; last Echo August 2024 showing LV ejection fraction is 60-64%, LV wall thickness mildly increased from prev study, mild AV sclerosis, Mild AV regurgitation, severe mitral annular calcification, Mild mitral stenosis #Hypertension * BP on the softer side s/p metoprolol for Afib management, now 111/61 * Will hold home losartan and terazosin * Trend BP #Dyslipidemia * Continue home statin #Sleep Apnea #Asthma * Adherent to CPAP at home, no supplemental oxygen * CPAP nightly ordered while inpatient * Continue home Anoro inhaler for asthma control #Diabetes Type II * Home home metformin * SSI while inpatient for goal BSG 110-140; continue home Lantus 50 units BID; adjust SSI as needed * Will check A1C in the morning #Depression * Continue home lexapro #H/o parathyroidectomy * History of hypercalcemia with partial parathyroidectomy * Mild calcium elevation on lab workup to 11.1-> will need outpatient follow up DVT Ppx: SCDs- anticoagulation contraindicated for history of HHT Code status: Full PCP: Gricel Das PA-C Dispo: Admit Patient seen in collaboration with Dr. Navarro. Please see addendum.I spent a total of 70 minutes coordinating, documenting and providing care for this patient excluding time spent in the performance of separately billed services or time spent by another provider/QHP. History of Present Illness Primary Care Provider: Gricel Das PA-C Patient is a 74 year old F with a past medical history of Type II DM, acquired hypothyroidism, dyslipidemia, JANE, asthma, hereditary hemorrhagic telangiectasia, HTN, nonrheumatic MV stenosis, Chronic diastolic HF, paroxysmal SVT, morbid obesity, presenting with dizziness, lightheadedness. Symptoms began Wednesday and continued to the next day with shortness of breath, nausea, headache, double vision, increased urination, and mild confusion. Patient is on insulin and her blood sugar was normal at the time. She thought her shortness of breath was related to be carrots, as she was also feeling hot at the time, and thought her symptoms related to asthma. Today, she went to [facility] and sent here for concerns of Afib. History of HHT and without anticoagulation. Denies fever, chills, weight loss, hearing changes, chest pain, swelling, urinary concerns, vomiting, diarrhea, joint swelling/pain, ambulation difficulty, falls, skin rashes, lesions, bleeding, bruising. In the emergency department, patient was tachycardic to 140's with dizziness. EKG showing Afib RVR with vent rate 148 bpm, QTc 467. Lopressor 5 mg x 3 given for rate control. Repeat EKG showing Afib with rate 97 bpm, QTc 408. Trop e levation to 137 most likely demand ischemia as patient has been symptomatic for 2 days. Repeat Trop 165. Cardiology consulted in the ED. I discussed the case with Dr. Navarro and per his recommendation, rate control achieved with Lopressor 5mg IV. Plan for transition to oral Lopressor for continued rate control. CHADS-VASC score 6; however, patient is not a candidate for anticoagulation given history of HHT and carries a very high risk of GI bleed. Hemoglobin 10.1 and at baseline currently. It was decided to forego heparin at this time for high risk of bleeding. Upon lab workup, Magnesium noted to be low at 1.6 and replaced with 1 gm Mag Sulfate by ED provider. An additional 2 gm Mag ordered. Given the patient's report of double vision with dizziness and mild confusion, additional imaging was obtained for rule out stroke as the patient was not on anticoagulation outpatient. Head CT was obtained showing chronic small vessel ischemic disease, otherwise unremarkable. Chest Xray showed Mild CHF. NAD on exam. Echocardiogram was ordered. History obtained primarily from the patient and via hospitalization record. External chart review obtained from [employer]. Allergies Allergy/AdvReac Type Severity Reaction Status Date / Time aspirin Allergy Unknown OSLER Verified 03/12/25 13:07 BROWN RENDU DISORDER cockroach Allergy Unknown ALLERGY Verified 03/12/25 17:22 TESTED - UNSURE REACTION oxycodone AdvReac Unknown vomiting Verified 03/12/25 13:07 cefdinir [From Omnicef] AdvReac NAUSEA AND Verified 03/12/25 16:29 VOMITING cetirizine [From Zyrtec] AdvReac Cough Verified 03/12/25 16:29 Home Medications Medication Instructions Recorded Confirmed Type escitalopram oxalate 10 mg tablet 10 mg PO QAM 03/04/24 03/12/25 History insulin glargine 100 unit/mL (3 50 unit subcut AMPM 03/04/24 03/12/25 History mL) subcutaneous pen (Lantus Solostar U-100 Insulin) semaglutide 1 mg/dose (4 mg/3 mL) 1 mg subcut WK 03/04/24 03/12/25 History subcutaneous pen injector (Ozempic) tolterodine 4 mg capsule,extended 4 mg PO QAM 03/04/24 03/12/25 History release 24 hr atorvastatin 20 mg tablet (Lipitor) 20 mg PO DAILY 03/12/25 03/12/25 History azelastine 137 mcg (0.1 %) nasal 1 spray intranasal AMHS 03/12/25 03/12/25 History spray brinzolamide 1 %-brimonidine 0.2 % 1 drp OPR TID 03/12/25 03/12/25 History eye drops,suspension (Simbrinza) cholecalciferol (vitamin D3) 25 25 mcg PO AMHS 03/12/25 03/12/25 History mcg (1,000 unit) capsule (Vitamin D3) ferrous sulfate 325 mg (65 mg 325 mg PO AC 03/12/25 03/12/25 History iron) tablet furosemide 20 mg tablet 10 mg PO QAM 03/12/25 03/12/25 History ipratropium 0.5 mg-albuterol 3 mg 3 ml inhalation .EVERY 4-6 HOURS 03/12/25 03/12/25 History (2.5 mg base)/3 mL nebulization PRN COUGHING,WHEEZING OR SOB soln ipratropium 20 mcg-albuterol 100 1 puff inhalation Q6 PRN 03/12/25 03/12/25 History mcg/actuation mist for inhalation wheezing,cough or SOB (Combivent Respimat) losartan 100 mg tablet (Cozaar) 100 mg PO DAILY 03/12/25 03/12/25 History metformin 1,000 mg tablet 1,000 mg PO BIDM 03/12/25 03/12/25 History metoprolol succinate 25 mg 25 mg PO QAM 03/12/25 03/12/25 History tablet,extended release 24 hr montelukast 10 mg tablet 10 mg PO QAM 03/12/25 03/12/25 History multivit-iron 18 mg-folic acid 400 1 tab PO DAILY 03/12/25 03/12/25 History mcg-calcium 500 mg-minerals tablet (Daily Multiple For Women) netarsudil 0.02 % eye drops 1 drp OPR QPM 03/12/25 03/12/25 History (Rhopressa) pantoprazole 40 mg tablet,delayed 40 mg PO DAILYBB 03/12/25 03/12/25 History release prednisone 10 mg tablet 5 mg PO QAM 03/12/25 03/12/25 History terazosin 10 mg capsule 10 mg PO HS 03/12/25 03/12/25 History timolol maleate 0.25 % eye drops 1 drp OPR QAM 03/12/25 03/12/25 History trazodone 50 mg tablet 50 mg PO HS 03/12/25 03/12/25 History umeclidinium 62.5 mcg-vilanterol 1 ea inhalation DAILY 03/12/25 03/12/25 History 25 mcg/actuation powdr for inhalation (Anoro Ellipta) valacyclovir 1 gram tablet 1,000 mg PO Q12 PRN COLDSORES 03/12/25 03/12/25 History (Valtrex) Past Med/Surg History Problem List HHT (hereditary hemorrhagic telangiectasia) Atrial fibrillation with rapid ventricular response Hypertension (Chronic) Diabetes (Chronic) GERD (gastroesophageal reflux disease) (Chronic) Sensorineural hearing loss (Chronic) Sleep apnea (Chronic) "uses CPAP" Cataract (Chronic) "R eye" Gastroparesis (Chronic) Depression (Chronic) Dyslipidemia (Chronic) Encounter for removal of sutures (Acute) Social History Smoking Status: Never smoker Hx Alcohol Use: No Hx Substance Use: No Preferred Language: Arabic Communication Ability: Effective Outreach Specialist Required: No Beliefs That Will Affect Care: None Current Living Situation: Spouse Current Living Situation Comment: [place] Feels Safe at Home: Yes Safety Concerns: Feels Safe At This Time Assistive Devices: Cane, CPAP and Glasses Review of Systems Review of Systems: All systems reviewed & are unremarkable except as noted in HPI & below Physical Exam Physical Exam: VITALS: Reviewed. WEIGHT/BMI reviewed. GEN: Healthy appearing, well-developed, NAD. PSYCH: Good Judgment. AOx3. Normal memory, mood, and affect. HEENT -Head: NC/AT; -Eyes: PERRL, EOMI. No discharge or redn ess; -Ears: External ears are normal. Normal TMs. -Nose: Normal nares. -Mouth and throat: MMM. Normal gums, muc jane, palate,. Good dentition. NECK: Supple, with no masses. CV: Irregular rhythm, no murmurs, no peripheral swelling LUNGS: CTAB, no w/r/c. ABD: Soft, NT/ND, NBS, no masses or organomegaly. : N/A SKIN: Warm, well perfused. Multiple moles, kerototic lesions to back MSK: No deformities, Normal gait. EXT: No clubbing, cyanosis, or edema. NEURO: CN II-XII grossly intact. Vision intact without double vision now. Facial symmetry noted. Strength 5/5 throughout Results & Data Results & Data Vital Signs (Past 12 Hours) Vital Signs Temp Pulse Pulse Resp BP BP Pulse Ox 03/12/25 15:13 97 H 111/61 03/12/25 15:09 92 H 103/64 03/12/25 14:54 101 H 131/97 03/12/25 14:49 117 H 131/97 03/12/25 14:34 142 H 121/83 03/12/25 14:33 151 H 03/12/25 14:28 142 H 19 121/83 94 03/12/25 14:28 94 03/12/25 14:10 36.6 C 158 H 20 128/73 95 O2 Del Method 03/12/25 15:13 03/12/25 15:09 03/12/25 14:54 03/12/25 14:49 03/12/25 14:34 03/12/25 14:33 03/12/25 14:28 Room Air 03/12/25 14:28 Room Air 03/12/25 14:10 Room Air Laboratory Results Short CBC 03/12/25 Range/Units 14:34 WBC 8.50 (4.8-10.8) K/ul Hgb 10.1 L (12.0-16.0) g/dl Hct 32.0 L (37.0-47.0) % Plt Count 240 (130-400) K/uL BMP 03/12/25 14:34 Sodium 138 Potassium 4.1 Chloride 103 Carbon Dioxide 22 BUN 27 H Creatinine 0.95 Glucose 144 H Calcium 11.1 H Liver Function 03/12/25 Range/Units 14:34 Total Bilirubin 0.4 (0.2-1.0) mg/dl AST 18 (13-39) U/L ALT 11 (7-52) U/L Alkaline Phosphatase 86 (34-104) U/L Albumin 4.1 (3.4-5.0) gm/dl Diagnostic Findings Chest X-Ray 03/12/25 15:26 XR chest 1V portable CLINICAL HISTORY: screener for a fib, dizzy, dyspnea COMPARISON STUDY: 03/04/2024 FINDINGS: There is mild cardiomegaly with pulmonary vascular congestion. No consolidation or pleural effusion seen. No pneumothorax. IMPRESSION: Mild CHF. ACT 112: Negative or not required by law. Electronically signed by: Javy Rae M.D. 03/12/2025 3:[address] 03/12/25 16:25 Technique: Axial computed tomography images were obtained of the brain without intravenous contrast. Comparison is made to the prior CT dated 06/20/2017 Findings: There is diffuse cerebral atrophy, within expected limits for the patient's age. Areas of decreased attenuation are seen within the periventricular white matter, likely representing chronic small vessel ischemic disease. There is no definite sign of acute or old infarction. No intracranial hemorrhage is evident. No definite mass lesion is seen on this noncontrast examination. There is no midline shift or other form of herniation. No hydrocephalus is seen. No fracture is identified. The orbits and the visualized paranasal sinuses appear unremarkable. The mastoid air cells appear clear. Impression: 1. Cerebral atrophy and chronic small vessel ischemic disease 2. Otherwise unremarkable noncontrast CT of the brain Electronically signed by Kingston Angulo 03-12-2025 4:52 PM Supervising Physician Co-Signing Physician Notes Attending Addendum: Case reviewed with the advanced practitioner. I have personally performed a history and physical examination on the patient. I have reviewed the advanced practitioner's documentation on the date of service referenced in note, and I agree with, and take responsibility for the plan of care. please refer to her notes for full details patient seen and examined, records reviewed by myself as well on exam, patient seen resting in bed, comfortable states she feels ok overall no chest pain, dyspnea, palpitations, dizziness no other symptoms VS noted and reviewed oriented x 3 , not in distress, speaks in sentences with no effort nor accessory muscle use normal rate, irregularly irregular rhythm, no murmurs clear breath sounds bilaterally non distended, soft, nontender no bipedal edema, erythema, warmth no neuro deficits all labs, imaging noted and reviewed ASSESSMENT AND PLAN A fib RVR Chronic A fib HR improving after 3 doses of IV Metoprolol 5mg transition from Metoprolol XL 25mg daily to Metoprolol tartrate 25mg QID anticoagulation contraindicated due to HHT Cardiology consulted other diagnoses and plan of care as per advanced practitioner's notes I spent a total of 40 minutes coordinating, documenting, and providing care for this patient, excluding time spent in the performance of separately billed services or time spent by another provider/QHP. Teja Navarro MD
--- NOTE | 2025-03-12 15:48 | XRay Report ---
XR chest 1V portable CLINICAL HISTORY: screener for a fib, dizzy, dyspnea COMPARISON STUDY: 03/04/2024 FINDINGS: There is mild cardiomegaly with pulmonary vascular congestion. No consolidation or pleural effusion seen. No pneumothorax. IMPRESSION: Mild CHF. ACT 112: Negative or not required by law. Electronically signed by: Javy Rae M.D. 03/12/2025 3:47 PM
[2025-03-12 15:49] LABS: Thyroid Stimulating Hormone 1.017 uIu/ml (0.300-4.500)
--- NOTE | 2025-03-12 16:40 | Cardiology Consultation ---
Date of Consultation March 12, 2025 Assessment & Plan (1) Atrial fibrillation with rapid ventricular response: 74-year-old female with a history of chronic diastolic heart failure, hypertension, type 2 diabetes mellitus, dyslipidemia, obstructive sleep apnea. [id number] score is at least 5 for risk factors of age over 75 (2 points) female sex, hypertension, diabetes. The patient however has a history of hereditary hemorrhagic telangiectasia syndrome and has baseline anemia, hemoglobin typically around 10 g/dL. Most recent colonoscopy was performed in October, revealing a few nonbleeding colonic angiodysplastic lesions consistent with her history. The patient is therefore felt to be at high risk for bleeding complication and will therefore hold off on systemic anticoagulation. She typically takes metoprolol succinate 25 mg by mouth daily in the morning, while hospitalized will change this to Metropol tartrate for ease of titration and start dose of 25 mg every 6 hours with hold for heart rate less than 60 and systolic blood pressure less than 100 millimeters Hg. Plan for repeat ttecho tomorrow. Case discussed by phone with SHAHID Powell for the purpose of coordination of care Myriam Navarro DO History of Present Illness History of Present Illness Ita Lebron is a 74 year old female seen in cardiology consultation per the request of SHAHID Goodwin for the evaluation of Atrial fibrillation with rapid ventricular response Patient presented to [facility] care today with a 2-day history of headache, nauseousness, blurry vision, generalized muscle weakness, low blood pressure and elevated resting heart rate. She notes baseline shortness of breath, with noted being more winded with minimal exertion. On arrival to the emergency department she was found to have atrial fibrillation with rapid ventricular response, ventricular rate as high as 158 bpm. After receiving metoprolol 5 mg x 3 doses her ventricular rate has improved down to just about 100 bpm and she is comfortable at the time of my evaluation. Past Medical History: 1.Chronic diastolic heart 2.Hereditary hemorrhagic telangiectasia syndrome 3.Incomplete right bundle branch Allergies Allergy/AdvReac Type Severity Reaction Status Date / Time aspirin Allergy Unknown OSLER Verified 03/12/25 13:07 BROWN RENDU DISORDER oxycodone AdvReac Unknown vomiting Verified 03/12/25 13:07 cefdinir [From Omnicef] AdvReac NAUSEA AND Verified 03/12/25 16:29 VOMITING cetirizine [From Zyrtec] AdvReac Cough Verified 03/12/25 16:29 Cockroach Allergy Unknown ALLERGY Uncoded 03/12/25 13:07 TESTED - UNSURE REACTION Home Medications Medication Instructions Recorded Confirmed Type escitalopram oxalate 10 mg tablet 10 mg PO QAM 03/04/24 03/12/25 History insulin glargine 100 unit/mL (3 50 unit subcut AMPM 03/04/24 03/12/25 History mL) subcutaneous pen (Lantus Solostar U-100 Insulin) semaglutide 1 mg/dose (4 mg/3 mL) 1 mg subcut WK 03/04/24 03/12/25 History subcutaneous pen injector (Ozempic) tolterodine 4 mg capsule,extended 4 mg PO QAM 03/04/24 03/12/25 History release 24 hr atorvastatin 20 mg tablet (Lipitor) 20 mg PO DAILY 03/12/25 03/12/25 History azelastine 137 mcg (0.1 %) nasal 1 spray intranasal AMHS 03/12/25 03/12/25 History spray brinzolamide 1 %-brimonidine 0.2 % 1 drp OPR TID 03/12/25 03/12/25 History eye drops,suspension (Simbrinza) cholecalciferol (vitamin D3) 25 25 mcg PO AMHS 03/12/25 03/12/25 History mcg (1,000 unit) capsule (Vitamin D3) ferrous sulfate 325 mg (65 mg 325 mg PO AC 03/12/25 03/12/25 History iron) tablet furosemide 20 mg tablet 10 mg PO QAM 03/12/25 03/12/25 History ipratropium 0.5 mg-albuterol 3 mg 3 ml inhalation .EVERY 4-6 HOURS 03/12/25 03/12/25 History (2.5 mg base)/3 mL nebulization PRN COUGHING,WHEEZING OR SOB soln ipratropium 20 mcg-albuterol 100 1 puff inhalation Q6 PRN 03/12/25 03/12/25 History mcg/actuation mist for inhalation wheezing,cough or SOB (Combivent Respimat) losartan 100 mg tablet (Cozaar) 100 mg PO DAILY 03/12/25 03/12/25 History metformin 1,000 mg tablet 1,000 mg PO BIDM 03/12/25 03/12/25 History metoprolol succinate 25 mg 25 mg PO QAM 03/12/25 03/12/25 History tablet,extended release 24 hr montelukast 10 mg tablet 10 mg PO QAM 03/12/25 03/12/25 History multivit-iron 18 mg-folic acid 400 1 tab PO DAILY 03/12/25 03/12/25 History mcg-calcium 500 mg-minerals tablet (Daily Multiple For Women) netarsudil 0.02 % eye drops 1 drp OPR QPM 03/12/25 03/12/25 History (Rhopressa) pantoprazole 40 mg tablet,delayed 40 mg PO DAILYBB 03/12/25 03/12/25 History release prednisone 10 mg tablet 5 mg PO QAM 03/12/25 03/12/25 History terazosin 10 mg capsule 10 mg PO HS 03/12/25 03/12/25 History timolol maleate 0.25 % eye drops 1 drp OPR QAM 03/12/25 03/12/25 History trazodone 50 mg tablet 50 mg PO HS 03/12/25 03/12/25 History umeclidinium 62.5 mcg-vilanterol 1 ea inhalation DAILY 03/12/25 03/12/25 History 25 mcg/actuation powdr for inhalation (Anoro Ellipta) valacyclovir 1 gram tablet 1,000 mg PO Q12 PRN COLDS[place]ES 03/12/25 03/12/25 History (Valtrex) Patient History Social History Smoking Status: Never smoker Preferred Language: Tuvaluan Feels Safe at Home: Yes Review of Systems Review of Systems: All systems reviewed & are unremarkable except as noted in HPI & below Physical Exam Physical Exam: General: no acute distress and stated age Eyes: conjunctiva are pink and non-injected, sclera clear Neck: normal jugular venous pulse, no hepatojugular reflux Chest: normal shape and normal respiratory effort Lungs: clear to auscultation and percussion Cardiac Exam: - regular heart sounds, no murmurs, rubs, or gallops, no jugular venous distention Abdomen: abdomen soft, non-tender, no abnormal masses and no hepatosplenomegaly Musculoskeletal: no gait disturbance, no weakness Extremities: no edema and no cyanosis Neuro:awake, conversant, follows commands, no focal motor deficits Psych: appropriate affect and insight. Results & Data Vital Signs (Past 12 Hours) Vital Signs Temp Pulse Pulse Resp BP BP Pulse Ox 03/12/25 15:13 97 H 111/61 03/12/25 15:09 92 H 103/64 03/12/25 14:54 101 H 131/97 03/12/25 14:49 117 H 131/97 03/12/25 14:34 142 H 121/83 03/12/25 14:33 151 H 03/12/25 14:28 142 H 19 121/83 94 03/12/25 14:28 94 03/12/25 14:10 36.6 C 158 H 20 128/73 95 O2 Del Method 03/12/25 15:13 03/12/25 15:09 03/12/25 14:54 03/12/25 14:49 03/12/25 14:34 03/12/25 14:33 03/12/25 14:28 Room Air 03/12/25 14:28 Room Air 03/12/25 14:10 Room Air Laboratory Results Cardiac Enzymes 03/12/25 Range/Units 14:34 AST 18 (13-39) U/L Troponin I High Sens 137.7 H* (0-14) pg/ml Coagulation 03/12/25 Range/Units 14:34 PT 10.9 (9.0-12.0) Seconds APTT 24 (21-31) Seconds CBC 03/12/25 Range/Units 14:34 WBC 8.50 (4.8-10.8) K/ul RBC 3.86 L (4.20-5.40) M/uL Hgb 10.1 L (12.0-16.0) g/dl Hct 32.0 L (37.0-47.0) % Plt Count 240 (130-400) K/uL Neut # (Auto) 6.76 H (1.40-6.50) K/uL Lymph # (Auto) 1.05 L (1.20-3.40) K/uL [place] # (Auto) 0.62 H (0.11-0.59) K/uL Eos # (Auto) 0.03 (0.00-0.50) K/uL Baso # (Auto) 0.03 (0.00-0.20) K/uL Comprehensive Metabolic Panel 03/12/25 Range/Units 14:34 Sodium 138 (136-145) mmol/L Potassium 4.1 (3.5-5.1) mmol/L Chloride 103 (98-107) mmol/L Carbon Dioxide 22 (21-32) mmol/L BUN 27 H (6-23) mg/dl Creatinine 0.95 (0.6-1.2) mg/dl Glucose 144 H (70-99(Fasting)) mg/dl Calcium 11.1 H (8.6-10.3) mg/dl AST 18 (13-39) U/L ALT 11 (7-52) U/L Alkaline Phosphatase 86 (34-104) U/L Total Protein 6.5 (6.0-8.3) gm/dl Albumin 4.1 (3.4-5.0) gm/dl Intake and Output 03/12/25 03/12/25 03/12/25 06:59 14:59 22:59 Other: Weight 115.2 kg Weight Measurement Method Chair Scale Patient Weight 03/13/25 06:59 Weight 115.2 kg Diagnostic Findings EKG performed 03/12/2025 at 1425 and interpreted independently: Atrial fibrillation with rapid ventricular response 148 bpm, nonspecific IVCD, age-indeterminate inferior infarct cannot be excluded, age-indeterminate anterior infarct of excluded (although these changes may be related to the IVCD). Compared to the previous tracing performed as an outpatient on 07/10/2024, atrial fibrillation has replaced normal sinus rhythm at 94 bpm. Nonspecific intraventricular conduction delay has replaced a incomplete right bundle branch block. Poor R wave progression in the precordial leads is chronic Repeat tracing performed 03/12/2025: Atrial fibrillation at 97 bpm, nonspecific IVCD. Compared to previous, the ventricular rate has decreased by 51 bpm Summary of transthoracic echocardiogram performed as an outpatient 08/01/24: The LV wall thickness is mildly increased (concentric). The left ventricular wall motion is normal. The qualitative LV ejection fraction is 60-64% (normal). The left atrium is normal sized. Left ventricular diastolic function is not assessed due to to underlying mitral valve pathology. Mild aortic valve sclerosis is present. Mild aortic valve regurgitation is present. There is severe mitral annular calcification. Mild mitral stenosis is present. Mild tricuspid regurgitation is present. Intermediate IVC size and collapsability. Right atrial pressure estimated at 8 mmHg. Tricuspid regurgitation is present. The signal is inadequate to calculate pulmonary artery systolic pressure. The findings are relatively unchanged compared to the previous study performed 03/20/2024. PG Care Time/CCT Total # of Minutes Spent Total Time Spent with Patient: Total time spent is greater than 50% in coordination of care (as documented) at patient's floor/unit and/or counseling patient: Coding Level of Care Code 21167 IN/OBS CONSULT LVL 4,60M Diagnoses Atrial fibrillation with rapid ventricular response I48.91
--- NOTE | 2025-03-12 16:52 | CT Scan Report ---
Technique: Axial computed tomography images were obtained of the brain without intravenous contrast. Comparison is made to the prior CT dated 06/20/2017 Findings: There is diffuse cerebral atrophy, within expected limits for the patient's age. Areas of decreased attenuation are seen within the periventricular white matter, likely representing chronic small vessel ischemic disease. There is no definite sign of acute or old infarction. No intracranial hemorrhage is evident. No definite mass lesion is seen on this noncontrast examination. There is no midline shift or other form of herniation. No hydrocephalus is seen. No fracture is identified. The orbits and the visualized paranasal sinuses appear unremarkable. The mastoid air cells appear clear. Impression: 1. Cerebral atrophy and chronic small vessel ischemic disease 2. Otherwise unremarkable noncontrast CT of the brain Electronically signed by Kingston Angulo 03-12-2025 4:52 PM
[2025-03-12] MEDS: MAGNESIUM SULFATE / D5W 1 GM/100 ML BAG IV SCH (16:56)
[2025-03-12] MEDS ORDERED: DEXTROSE 50% 50 ML SYRINGE IV PRN ×2 (17:30→20:33)
[2025-03-12] MEDS ORDERED: GLUCOSE 10 TAB/TUBE PO PRN ×2 (17:30→20:33)
[2025-03-12] MEDS ORDERED: GLUCOSE 40% GEL 15 GM TUBE PO PRN ×2 (17:30→20:33)
[2025-03-12] MEDS ORDERED: GLUCAGON FOR INJ 1 MG VIAL SQ PRN ×2 (17:30→20:33)
[2025-03-12] MEDS ORDERED: CARBOHYDRATES FOR HYPOGLYCEMIA PO PRN ×2 (17:30→20:33)
[2025-03-12] MEDS: METOPROLOL TARTRATE 25 MG TAB PO SCH (17:54)
[2025-03-12] MEDS ORDERED: NITROGLYCERIN SL 0.4 MG/TAB TAB SL PRN (20:33)
[2025-03-12] MEDS ORDERED: MAGNESIUM HYDROXIDE SUSP 30 ML UDC PO PRN (20:33)
[2025-03-12] MEDS ORDERED: ONDANSETRON INJ 2 MG/ML 2 ML VIAL IV PRN (20:33)
[2025-03-12] MEDS ORDERED: ACETAMINOPHEN 325 MG TAB PO PRN (20:33)
[2025-03-12] MEDS ORDERED: POLYETHYLENE (MIRALAX) 17 GM PACK PO PRN (20:33)
[2025-03-12] MEDS ORDERED: ALUMINUM/MAGNESIUM SUSP 30 ML UDC PO PRN (20:33)
[2025-03-12] MEDS ORDERED: METOPROLOL SUCC 25MG EXT REL TAB PO SCH (21:00)
[2025-03-12 21:11] LABS: Hematocrit (blood only) 31.1 % (37.0-47.0); Hemoglobin 9.9 g/dl (12.0-16.0); Mean Corpuscular Hemoglobin 26.5 pg (25.0-34.0); Mean Corpuscular Volume 83.4 fL (80.0-100.0); Platelet Count 238 K/uL (130-400); RDW Standard Deviation 45.1 fL (36.4-46.3); Red Blood Count 3.73 M/uL (4.20-5.40); White Blood Count 7.72 K/ul (4.8-10.8)
[2025-03-12] MEDS: CHOLECALCIFEROL 25 MCG (1000 UNITS) TAB PO SCH (22:06)
[2025-03-12] MEDS: ATORVASTATIN 20 MG TAB PO SCH (22:07)
[2025-03-12] MEDS: INSULIN ASPART PER UNIT CHARGE SC SCH (22:13)
[2025-03-12] MEDS: LANTUS PER UNIT CHARGE SC SCH (22:19)
[2025-03-13 06:19] LABS: Anion Gap 6.0 (3-11); Blood Urea Nitrogen 20.0 mg/dl (6-23); Calcium 11.1 mg/dl (8.6-10.3); Carbon Dioxide 28.0 mmol/L (21-32); Chloride 105.0 mmol/L (98-107); Creatinine Clr Calc Pharmacy 65.3 ml/min; Glucose 142.0 mg/dl (70-99(Fasting)); Magnesium 1.7 mg/dl (1.7-2.4); Potassium 4.3 mmol/L (3.5-5.1); Sodium 139.0 mmol/L (136-145)
[2025-03-13] MEDS: FERROUS SULFATE 325 MG TAB PO SCH (07:31)
[2025-03-13 07:35] LABS: Hemoglobin A1C 5.1 % (4.5-5.6)
[2025-03-13] MEDS: MAGNESIUM SULFATE / D5W 1 GM/100 ML BAG IV ONE (09:18)
[2025-03-13] MEDS: CEROVITE ADV FORMULA TAB PO SCH (09:19)
[2025-03-13] MEDS: ESCITALOPRAM OXALATE 10 MG TAB PO SCH (09:19)
[2025-03-13] MEDS: FUROSEMIDE 20 MG TAB PO SCH (09:20)
[2025-03-13] MEDS: UMECLIDINIUM/VILANTEROL 62.5/25MCG 7 PUFFS/INHALER INH SCH (09:21)
[2025-03-13] MEDS: TIMOLOL MALEATE 0.25% OP SOLN 5 ML BTL OP SCH (09:21)
[2025-03-13] MEDS: OXYBUTYNIN CHLORIDE XL 5 MG TABCR PO SCH (09:22)
--- NOTE | 2025-03-13 11:21 | XCELERA ---
[id number]
[2025-03-13] MEDS: METOPROLOL SUCC 50MG EXT REL TAB PO SCH (11:50)
--- NOTE | 2025-03-13 12:39 | Cardiology Progress Note ---
Date of Service March 13, 2025 Assessment & Plan (1) Atrial fibrillation with rapid ventricular response: Plan: 74-year-old female with a history of chronic diastolic heart failure, hypertension, type 2 diabetes mellitus, dyslipidemia, obstructive sleep apnea. admitted to [facility] with new onset afib RVR. [id number] score is at least 5 for risk factors of age over 75 (2 points) female sex, hypertension, diabetes. The patient however has a history of hereditary hemorrhagic telangiectasia syndrome and has baseline anemia, hemoglobin typically around 10 g/dL. Most recent colonoscopy was performed in October, revealing a few nonbleeding colonic angiodysplastic lesions consistent with her history. The patient is therefore felt to be at high risk for bleeding complication and will therefore hold off on systemic anticoagulation. Ongoing rate control recommended. overnight, HR's improved with metoprolol tartrate. For ease of medication use at home, will transition this to metoprolol succinate this morning at 50 mg (home dose was 25 mg). Echo this morning with preserved LVEF, no significant valvular disease. Monitor HR's the rest of the morning and afternoon. If HR's remain controlled, and patient asymptomatic, possible discharge later to day Case discussed with Dr. Melanie Antony PA-C Department of Cardiology, [facility] This chart was completed in part utilizing Speech Voice Recognition Software. Grammatical errors, random word insertions, pronoun errors, and incomplete sentences are an occasional consequence of this system due to software limitations, ambient noise, and hardware issues. Any formal questions or conc erns about the content, text, or information contained within the body of this dictation should be directly addressed to the provider for clarification. Admission and Anticipated Discharge Date Admission Date: March 12, 2025 Supervising Physician Co-Signing Physician Notes Attending attestation: Case reviewed with the advanced practitioner. I have personally performed a history and physical examination on the patient. I have reviewed the advanced practitioner's documentation on the date of service referenced in note, and I agree with, and take responsibility for the plan of care. Subjective: Patient feeling slightly improved. Atrial fibrillation noted with ventricular rate in the range of 90 to 120 bpm, down from 140 bpm overnight. Exam: Cardiovascular: Regular rhythm, no murmurs, no edema Data: Echocardiogram performed 03/13/2025 revealed LVEF in the range of 60 to 65% Severe mitral annular calcification, mild mitral stenosis Impression/ Plan: New onset atrial fibrillation with rapid ventricular response Hereditary hemorrhagic telangiectasia syndrome Baseline anemia - Continue rate control without anticoagulation. -Metoprolol succinate 50 mg daily. Prabhu Navarro DO Subjective Patient resting in bed comfortably. She denies complaints of palpitations or tachypalpitations. No dizziness. She reports feeling much improved from admission. Shortness of breath also improved. No chest pain. Review of Systems Review of Systems: All systems reviewed & are unremarkable except as noted in HPI & below Physical Exam Physical Exam: General: no acute distress and stated age Eyes: conjunctiva are pink and non-injected, sclera clear Neck: normal jugular venous pulse, no hepatojugular reflux Chest: normal shape and normal respiratory effort Lungs: clear to auscultation and percussion Cardiac Exam: - irregularly irregular. Slightly tachycardic. no murmurs, rubs, or gallops, no jugular venous distention Abdomen: abdomen soft, non-tender, no abnormal masses and no hepatosplenomegaly Musculoskeletal: no gait disturbance, no weakness Extremities: no edema and no cyanosis Neuro:awake, conversant, follows commands, no focal motor deficits Psych: appropriate affect and insight. Results & Data Vital Signs (Past 12 Hours) Vital Signs Temp Pulse Pulse Resp BP Pulse Ox O2 Del Method 03/13/25 11:35 36.7 C 99 H 18 128/70 93 Room Air 03/13/25 08:11 36.5 C 62 18 171/67 H 93 Room Air 03/13/25 08:04 36.5 C 80 19 126/79 95 Room Air 03/13/25 08:00 85 03/13/25 04:34 36.6 C 99 H 16 138/72 97 Room Air Laboratory Results Cardiac Enzymes 03/12/25 03/12/25 03/13/25 Range/Units 14:34 16:52 05:26 AST 18 (13-39) U/L Troponin I High Sens 137.7 H* 165.6 H* D 157.7 H* (0-14) pg/ml Coagulation 03/12/25 Range/Units 14:34 PT 10.9 (9.0-12.0) Seconds APTT 24 (21-31) Seconds CBC 03/12/25 03/12/25 Range/Units 14:34 20:44 WBC 8.50 7.72 (4.8-10.8) K/ul RBC 3.86 L 3.73 L (4.20-5.40) M/uL Hgb 10.1 L 9.9 L (12.0-16.0) g/dl Hct 32.0 L 31.1 L (37.0-47.0) % Plt Count 240 238 (130-400) K/uL Neut # (Auto) 6.76 H (1.40-6.50) K/uL Lymph # (Auto) 1.05 L (1.20-3.40) K/uL [place] # (Auto) 0.62 H (0.11-0.59) K/uL Eos # (Auto) 0.03 (0.00-0.50) K/uL Baso # (Auto) 0.03 (0.00-0.20) K/uL Comprehensive Metabolic Panel 03/12/25 03/13/25 Range/Units 14:34 05:26 Sodium 138 139 (136-145) mmol/L Potassium 4.1 4.3 (3.5-5.1) mmol/L Chloride 103 105 (98-107) mmol/L Carbon Dioxide 22 28 (21-32) mmol/L BUN 27 H 20 (6-23) mg/dl Creatinine 0.95 0.89 (0.6-1.2) mg/dl Glucose 144 H 142 H (70-99(Fasting)) mg/dl Calcium 11.1 H 11.1 H (8.6-10.3) mg/dl AST 18 (13-39) U/L ALT 11 (7-52) U/L Alkaline Phosphatase 86 (34-104) U/L Total Protein 6.5 (6.0-8.3) gm/dl Albumin 4.1 (3.4-5.0) gm/dl Intake and Output 03/12/25 03/13/25 03/13/25 22:59 06:59 14:59 Intake Total 420 / 620 200 / 620 100 / 100 Balance 420 / 620 200 / 620 100 / 100 Intake: IV 300 / 300 100 / 100 Magnesium Sulfate / D5w 1 gm In 300 / 300 100 / 100 100 ml @ 50 mls/hr IV ONE ONE Rx#:[id number] Oral 120 / 320 200 / 320 Other: # Unmeasured Voids 1 2 Weight 113.7 kg 113.7 kg Weight Measurement Method Standing Scale Standing Scale Diagnostic Findings Telemetry reviewed: Persistent atrial fibrillation with variable heart rates predominantly ranging 90-120s. Echocardiogram report reviewed dated today 03/13/2025: During echo, atrial fibrillation with controlled ventricular rate was present. Mild concentric LVH. No regional wall motion abnormalities noted. LVEF 60 to 65%. LV systolic function is normal. RV systolic function is normal. Severe MAC. No significant mitral regurgitation Mild mitral stenosis. Medications Administered Current Inpatient Medications Acetaminophen (Acetaminophen 325 Mg Tab) 650 mg PO Q4H PRN PRN Reason: Pain or Fever Stop: 04/11/25 20:32 Al Hydrox/Mg Hydrox/Simethicone (Aluminum/Magnesium Susp 30 Ml Udc) 15 ml PO Q4H PRN PRN Reason: Dyspepsia Stop: 04/11/25 20:32 Atorvastatin Calcium (Atorvastatin 20 Mg Tab) 20 mg PO DAILY@2100 [facility] Stop: 04/11/25 20:59 Last Admin: 03/12/25 22:07 Dose: 20 mg Dextrose (Dextrose 50% 50 Ml Syringe) 25 - 50 ml IV UD PRN; Protocol PRN Reason: Hypoglycemia Protocol Stop: 04/11/25 20:32 Escitalopram Oxalate (Escitalopram Oxalate 10 Mg Tab) 10 mg PO QAM [facility] Stop: 04/12/25 08:59 Last Admin: 03/13/25 09:19 Dose: 10 mg Ferrous Sulfate (Ferrous Sulfate 325 Mg Tab) 325 mg PO AC [facility] Stop: 04/12/25 07:29 Last Admin: 03/13/25 11:50 Dose: 325 mg Furosemide (Furosemide 20 Mg Tab) 10 mg PO QAM [facility] Stop: 04/12/25 08:59 Last Admin: 03/13/25 09:20 Dose: 10 mg Glucagon (Glucagon For Inj 1 Mg Vial) 1 mg SQ UD PRN; Protocol PRN Reason: Hypoglycemia Protocol Stop: 04/11/25 20:32 Glucose (Glucose 40% Gel 15 Gm Tube) 15 - 30 gm PO UD PRN; Protocol PRN Reason: Hypoglycemia Protocol Stop: 04/11/25 20:32 Glucose (Glucose 10 Tab/Tube) 4 - 8 tab PO UD PRN; Protocol PRN Reason: Hypoglycemia Protocol Stop: 04/11/25 20:32 Insulin Aspart (Insulin Aspart Per Unit Charge) 0 units SC [facility] Stop: 04/11/25 20:44 Last Admin: 03/13/25 09:18 Dose: 17 units Insulin Glargine (Lantus Per Unit Charge) 50 units SC [facility] Stop: 04/11/25 20:59 Last Admin: 03/13/25 09:29 Dose: 50 units Magnesium Hydroxide (Magnesium Hydroxide Susp 30 Ml Udc) 30 ml PO Q12H PRN PRN Reason: Constipation Stop: 04/11/25 20:32 Metoprolol Succinate (Metoprolol Succ 50mg Ext Rel Tab) 50 mg PO [facility] Stop: 04/12/25 10:59 Last Admin: 03/13/25 11:50 Dose: 50 mg Miscellaneous (Order Awaiting Action - Brinzolamide-Brimonidine [Simbrinza]) 1 each N/A QS [facility] Stop: 04/12/25 00:00 Last Admin: 03/13/25 07:30 Dose: Not Given Miscellaneous (Order Awaiting Action - Netarsudil [Rhopressa] 0.02 % Drops) 1 each N/A QS [facility] Stop: 04/12/25 00:00 Last Admin: 03/13/25 07:30 Dose: Not Given Miscellaneous (Carbohydrates For Hypoglycemia ) 15 - 30 gm PO UD PRN PRN Reason: Hypoglycemia Protocol Stop: 04/11/25 20:32 Multivitamins/Minerals (Cerovite Adv Formula Tab) 1 tab PO DAILY [facility] Stop: 04/12/25 08:59 Last Admin: 03/13/25 09:19 Dose: 1 tab Nitroglycerin (Nitroglycerin Sl 0.4 Mg/Tab Tab) 0.4 mg SL Q5M PRN PRN Reason: Chest Pain Stop: 04/11/25 20:32 Ondansetron HCl (Ondansetron Inj 2 Mg/Ml 2 Ml Vial) 4 mg IV Q6H PRN PRN Reason: Nausea Stop: 04/11/25 20:32 Oxybutynin Chloride (Oxybutynin Chloride Xl 5 Mg Tabcr) [facility] [place]: 04/12/25 08:59 Last Admin: 03/13/25 09:22 Dose: 10 mg Pantoprazole Sodium (Pantoprazole 40 Mg Tab) 40 mg PO DAILYBB [facility] Stop: 04/12/25 06:29 Last Admin: 03/13/25 06:11 Dose: 40 mg Polyethylene Glycol (Polyethylene (Miralax) 17 Gm Pack) 17 gm PO DAILY PRN PRN Reason: Constipation Stop: 04/11/25 20:32 Prednisone (Prednisone 5 Mg Tab) 5 mg PO QAM [facility] Stop: 04/12/25 08:59 Last Admin: 03/13/25 09:23 Dose: 5 mg Timolol Maleate (Timolol Maleate 0.25% Op Soln 5 Ml Btl) 1 drops OP QAM [facility] Stop: 04/12/25 08:59 Last Admin: 03/13/25 09:21 Dose: 1 drops Trazodone HCl (Trazodone Hcl 50 Mg Tab) 50 mg PO HS [facility] Stop: 04/11/25 20:59 Last Admin: 03/12/25 22:05 Dose: 50 mg Umeclidinium/Vilanterol (Umeclidinium/Vilanterol 62.5/25mcg 7 Puffs/Inhaler) 1 puffs INH DAILY [facility] Stop: 04/12/25 08:59 Last Admin: 03/13/25 09:21 Dose: 1 puffs Vitamin D (Cholecalciferol 25 Mcg (1000 Units) Tab) 25 mcg PO AMHS [facility] Stop: 04/11/25 20:59 Last Admin: 03/13/25 09:19 Dose: 25 mcg Coding Level of Care Code 50038 SUB INP/OBS CARE 3/50MIN Diagnoses Atrial fibrillation with rapid ventricular response I48.91
--- NOTE | 2025-03-13 16:43 | Hospitalist Progress Note ---
Date of Service March 13, 2025 Assessment & Plan (1) Atrial fibrillation with rapid ventricular response: (2) HHT (hereditary hemorrhagic telangiectasia): (3) Hypertension: (4) Dyslipidemia: (5) Sleep apnea: (6) Diabetes: (7) Depression: (8) H/O parathyroidectomy: Plan: Patient is a 74 year old F with a past medical history of Type II DM, acquired hypothyroidism, dyslipidemia, JANE, asthma, hereditary hemorrhagic telangiectasia, HTN, nonrheumatic MV stenosis, Chronic diastolic HF, paroxysmal SVT, morbid obesity, presenting with dizziness, lightheadedness. Symptoms began Wednesday and continued to the next day with shortness of breath, nausea, h eadache, double vision, increased urination, and mild confusion. Patient is on insulin and her blood sugar was normal at the time. She thought her shortness of breath was related to be carrots, as she was also feeling hot at the time, and thought her symptoms related to asthma. Today, she went to [facility] and sent here for concerns of Afib. History of HHT and without anticoagulation. Atrial Fibrillation with RVR, new onset * Dizziness, lightheaded, headache, focal symptoms, SOB, nausea-> EKG showing Afib RVR, rate 148, QTc 467; Metoprolol 5mg given x 3 per ED provider; repeat EKG with improved rate control at 97 bpm, still in Afib, QTc 408 * Trop elevated to 137 most likely demand ischemia d/t symptomatic x 2 days-> repeat Trop 165; no chest pain * CT head ordered for history focal symptoms-> CT Head w/o contrast showed Cerebral atrophy and chronic small vessel ischemic disease * Echo obtained * Cardiology consulted - beta kevin increased , cont. to monitor on tele, hold anticoagulation for hx HHT #Hereditary hemorrhagic telangiectasia * CHADS-VASC score 6 * Anticoagulation contraindicated d/t hx HHT; no active bleeding currently; Hgb 10 - at baseline * DVT prophylaxis via SCDs d/t high risk GI bleed * monitor H&H #Hypomagnesemia * replete and monitor #Diastolic HF * Chest Xray showing mild CHF; no cough or swelling * Echo ordered and pending; last Echo August 2024 showing LV ejection fraction is 60-64%, LV wall thickness mildly increased from prev study, mild AV sclerosis, Mild AV regurgitation, severe mitral annular calcification, Mild mitral stenosis #Hypertension * BP on the softer side s/p metoprolol for Afib management, now 111/61 * Will hold home losartan and terazosin * Trend BP #Dyslipidemia * Continue home statin #Sleep Apnea #Asthma * Adherent to CPAP at home, no supplemental oxygen * CPAP nightly ordered while inpatient * Continue home Anoro inhaler for asthma control #Diabetes Type II * Home home metformin * SSI while inpatient for goal BSG 110-140; continue home Lantus 50 units BID; adjust SSI as needed * current A1C 5.1% #Depression * Continue home lexapro #H/o parathyroidectomy * History of hypercalcemia with partial parathyroidectomy * Mild calcium elevation on lab workup to 11.1-> will need outpatient follow up DVT Ppx: SCDs- anticoagulation contraindicated for history of HHT Code status: Full PCP: Gricel Das PA-C Dispo: PCU Admission and Anticipated Discharge Date Admission Date: March 12, 2025 Subjective Pt seen in follow up of Afib RVR Currently sitting up in bed in NAD, feeling much improved. Denies having any symptoms that she had on admission. Denies any chest pain, palpitations, denies any blurry vision or headache. No nausea, no abd. pain Denies fever, chills, shortness of breath. This morning pt is inquiring about discharge home however her HR is still elevated, discussed w/ cardiology, plan to increase beta kevin and will cont. to monitor today. Review of Systems Review of Systems: All systems reviewed & are unremarkable except as noted in Subjective Physical Exam Physical Exam: GEN: obese F in NAD. HEENT: NC/AT, PERRL. External ears are normal.MMM. NECK: Supple CV: Irregular rhythm, no murmurs LUNGS: CTAB, no w/r/c. ABD: Soft, NT/ND, NBS SKIN: Warm, well perfused. EXT: no LE edema, moves extremities NEURO: awake, alert, oriented, answers appropriately, moves extremities Results & Data Results & Data Vital Signs (Past 12 Hours) Vital Signs Temp Pulse Pulse Resp BP Pulse Ox O2 Del Method 03/13/25 15:46 36.6 C 97 H 20 105/88 93 Room Air 03/13/25 15:43 105 H 03/13/25 11:35 36.7 C 99 H 18 128/70 93 Room Air 03/13/25 08:11 36.5 C 62 18 171/67 H 93 Room Air 03/13/25 08:04 36.5 C 80 19 126/79 95 Room Air 03/13/25 08:00 85 Laboratory Results 03/13/25 03/13/25 03/13/25 Range/Units 16:03 11:48 08:01 WBC (4.8-10.8) K/ul RBC (4.20-5.40) M/uL Hgb (12.0-16.0) g/dl Hct (37.0-47.0) % MCV (80.0-100.0) fL MCH (25.0-34.0) pg MCHC (32.0-36.0) g/dL RDW Std Deviation (36.4-46.3) fL RDW Coeff of Colby (11.5-14.5) % Plt Count (130-400) K/uL MPV (9.4-12.4) fL Sodium (136-145) mmol/L Potassium (3.5-5.1) mmol/L Chloride (98-107) mmol/L Carbon Dioxide (21-32) mmol/L Anion Gap (3-11) BUN (6-23) mg/dl Creatinine (0.6-1.2) mg/dl Est Cr Clr Drug Dosing ml/min eGFR BUN/Creatinine Ratio (10-20) Glucose (70-99(Fasting)) mg/dl POC Glucose 108 H 114 H 140 H (70-99) mg/dl Estimat Average Glucose mg/dl Hemoglobin A1c (4.5-5.6) % Calcium (8.6-10.3) mg/dl Magnesium (1.7-2.4) mg/dl Troponin I High Sens (0-14) pg/ml Hepatitis C Ab Screen (Negative) 03/13/25 03/12/25 03/12/25 Range/Units 05:26 22:13 20:44 WBC 7.72 (4.8-10.8) K/ul RBC 3.73 L (4.20-5.40) M/uL Hgb 9.9 L (12.0-16.0) g/dl Hct 31.1 L (37.0-47.0) % MCV 83.4 (80.0-100.0) fL MCH 26.5 (25.0-34.0) pg MCHC 31.8 L (32.0-36.0) g/dL RDW Std Deviation 45.1 (36.4-46.3) fL RDW Coeff of Colby 14.9 H (11.5-14.5) % Plt Count 238 (130-400) K/uL MPV 10.8 (9.4-12.4) fL Sodium 139 (136-145) mmol/L Potassium 4.3 (3.5-5.1) mmol/L Chloride 105 (98-107) mmol/L Carbon Dioxide 28 (21-32) mmol/L Anion Gap 6 (3-11) BUN 20 (6-23) mg/dl Creatinine 0.89 (0.6-1.2) mg/dl Est Cr Clr Drug Dosing 65.3 ml/min eGFR 67.15 BUN/Creatinine Ratio 22.5 H (10-20) Glucose 142 H (70-99(Fasting)) mg/dl POC Glucose 120 H (70-99) mg/dl Estimat Average Glucose 100 mg/dl Hemoglobin A1c 5.1 (4.5-5.6) % Calcium 11.1 H (8.6-10.3) mg/dl Magnesium 1.7 (1.7-2.4) mg/dl Troponin I High Sens 157.7 H* (0-14) pg/ml Hepatitis C Ab Screen (Negative) 03/12/25 03/12/25 Range/Units 16:52 14:34 WBC (4.8-10.8) K/ul RBC (4.20-5.40) M/uL Hgb (12.0-16.0) g/dl Hct (37.0-47.0) % MCV (80.0-100.0) fL MCH (25.0-34.0) pg MCHC (32.0-36.0) g/dL RDW Std Deviation (36.4-46.3) fL RDW Coeff of Colby (11.5-14.5) % Plt Count (130-400) K/uL MPV (9.4-12.4) fL Sodium (136-145) mmol/L Potassium (3.5-5.1) mmol/L Chloride (98-107) mmol/L Carbon Dioxide (21-32) mmol/L Anion Gap (3-11) BUN (6-23) mg/dl Creatinine (0.6-1.2) mg/dl Est Cr Clr Drug Dosing ml/min eGFR BUN/Creatinine Ratio (10-20) Glucose (70-99(Fasting)) mg/dl POC Glucose (70-99) mg/dl Estimat Average Glucose mg/dl Hemoglobin A1c (4.5-5.6) % Calcium (8.6-10.3) mg/dl Magnesium (1.7-2.4) mg/dl Troponin I High Sens 165.6 H* D (0-14) pg/ml Hepatitis C Ab Screen Negative (Negative) Medications Administered Current Inpatient Medications Acetaminophen (Acetaminophen 325 Mg Tab) 650 mg PO Q4H PRN PRN Reason: Pain or Fever Stop: 04/11/25 20:32 Al Hydrox/Mg Hydrox/Simethicone (Aluminum/Magnesium Susp 30 Ml Udc) 15 ml PO Q4H PRN PRN Reason: Dyspepsia Stop: 04/11/25 20:32 Atorvastatin Calcium (Atorvastatin 20 Mg Tab) 20 mg PO DAILY@2100 [facility] Stop: 04/11/25 20:59 Last Admin: 03/12/25 22:07 Dose: 20 mg Dextrose (Dextrose 50% 50 Ml Syringe) 25 - 50 ml IV UD PRN; Protocol PRN Reason: Hypoglycemia Protocol Stop: 04/11/25 20:32 Escitalopram Oxalate (Escitalopram Oxalate 10 Mg Tab) 10 mg PO QAM [facility] Stop: 04/12/25 08:59 Last Admin: 03/13/25 09:19 Dose: 10 mg Ferrous Sulfate (Ferrous Sulfate 325 Mg Tab) 325 mg PO AC [facility] Stop: 04/12/25 07:29 Last Admin: 03/13/25 11:50 Dose: 325 mg Furosemide (Furosemide 20 Mg Tab) 10 mg PO QAM [facility] Stop: 04/12/25 08:59 Last Admin: 03/13/25 09:20 Dose: 10 mg Glucagon (Glucagon For Inj 1 Mg Vial) 1 mg SQ UD PRN; Protocol PRN Reason: Hypoglycemia Protocol Stop: 04/11/25 20:32 Glucose (Glucose 40% Gel 15 Gm Tube) 15 - 30 gm PO UD PRN; Protocol PRN Reason: Hypoglycemia Protocol Stop: 04/11/25 20:32 Glucose (Glucose 10 Tab/Tube) 4 - 8 tab PO UD PRN; Protocol PRN Reason: Hypoglycemia Protocol Stop: 04/11/25 20:32 Insulin Aspart (Insulin Aspart Per Unit Charge) 0 units SC ACHS [facility] Stop: 04/11/25 20:44 Last Admin: 03/13/25 12:36 Dose: 20 units Insulin Glargine (Lantus Per Unit Charge) 50 units SC AMHS [facility] Stop: 04/11/25 20:59 Last Admin: 03/13/25 09:29 Dose: 50 units Magnesium Hydroxide (Magnesium Hydroxide Susp 30 Ml Udc) 30 ml PO Q12H PRN PRN Reason: Constipation Stop: 04/11/25 20:32 Metoprolol Succinate (Metoprolol Succ 50mg Ext Rel Tab) 50 mg PO QAM [facility] Stop: 04/12/25 10:59 Last Admin: 03/13/25 11:50 Dose: 50 mg Miscellaneous (Order Awaiting Action - Brinzolamide-Brimonidine [Simbrinza]) 1 each N/A QS [facility] Stop: 04/12/25 00:00 Last Admin: 03/13/25 15:50 Dose: Not Given Miscellaneous (Order Awaiting Action - Netarsudil [Rhopressa] 0.02 % Drops) 1 each N/A QS [facility] Stop: 04/12/25 00:00 Last Admin: 03/13/25 15:50 Dose: Not Given Miscellaneous (Carbohydrates For Hypoglycemia ) 15 - 30 gm PO UD PRN PRN Reason: Hypoglycemia Protocol Stop: 04/11/25 20:32 Multivitamins/Minerals (Cerovite Adv Formula Tab) 1 tab PO DAILY [facility] Stop: 04/12/25 08:59 Last Admin: 03/13/25 09:19 Dose: 1 tab Nitroglycerin (Nitroglycerin Sl 0.4 Mg/Tab Tab) 0.4 mg SL Q5M PRN PRN Reason: Chest Pain Stop: 04/11/25 20:32 Ondansetron HCl (Ondansetron Inj 2 Mg/Ml 2 Ml Vial) 4 mg IV Q6H PRN PRN Reason: Nausea Stop: 04/11/25 20:32 Oxybutynin Chloride (Oxybutynin Chloride Xl 5 Mg Tabcr) 10 mg PO QAM [facility] Stop: 04/12/25 08:59 Last Admin: 03/13/25 09:22 Dose: 10 mg Pantoprazole Sodium (Pantoprazole 40 Mg Tab) 40 mg PO DAILYBB [facility] Stop: 04/12/25 06:29 Last Admin: 03/13/25 06:11 Dose: 40 mg Polyethylene Glycol (Polyethylene (Miralax) 17 Gm Pack) 17 gm PO DAILY PRN PRN Reason: Constipation Stop: 04/11/25 20:32 Prednisone (Prednisone 5 Mg Tab) 5 mg PO QAM [facility] Stop: 04/12/25 08:59 Last Admin: 03/13/25 09:23 Dose: 5 mg Timolol Maleate (Timolol Maleate 0.25% Op Soln 5 Ml Btl) 1 drops OP QAM [facility] Stop: 04/12/25 08:59 Last Admin: 03/13/25 09:21 Dose: 1 drops Trazodone HCl (Trazodone Hcl 50 Mg Tab) 50 mg PO HS [facility] Stop: 04/11/25 20:59 Last Admin: 03/12/25 22:05 Dose: 50 mg Umeclidinium/Vilanterol (Umeclidinium/Vilanterol 62.5/25mcg 7 Puffs/Inhaler) 1 puffs INH DAILY [facility] Stop: 04/12/25 08:59 Last Admin: 03/13/25 09:21 Dose: 1 puffs Vitamin D (Cholecalciferol 25 Mcg (1000 Units) Tab) 25 mcg PO AMHS [facility] Stop: 04/11/25 20:59 Last Admin: 03/13/25 09:19 Dose: 25 mcg
[2025-03-14 06:44] LABS: Anion Gap 8.0 (3-11); Blood Urea Nitrogen 16.0 mg/dl (6-23); Calcium 10.7 mg/dl (8.6-10.3); Carbon Dioxide 29.0 mmol/L (21-32); Chloride 103.0 mmol/L (98-107); Creatinine Clr Calc Pharmacy 63.9 ml/min; Glucose 103.0 mg/dl (70-99(Fasting)); Magnesium 1.6 mg/dl (1.7-2.4); Potassium 3.9 mmol/L (3.5-5.1); Sodium 140.0 mmol/L (136-145)
[2025-03-14 08:00] VITALS: RESP 20
[2025-03-14] MEDS: MAGNESIUM SULFATE / D5W 1 GM/100 ML BAG IV SCH (09:00)
--- NOTE | 2025-03-14 10:28 | Discharge Summary ---
Discharge Summary Date of Service March 14, 2025 Principal Dx & Hospital Course #1 = Principal Diagnosis (1) Atrial fibrillation with rapid ventricular response: (2) HHT (hereditary hemorrhagic telangiectasia): (3) Hypertension: (4) Dyslipidemia: (5) Sleep apnea: (6) Diabetes: (7) Depression: (8) H/O parathyroidectomy: Patient is a 74 year old F with a past medical history of Type II DM, acquired hypothyroidism, dyslipidemia, JANE, asthma, hereditary hemorrhagic telangiectasia, HTN, nonrheumatic MV stenosis, Chronic diastolic HF, paroxysmal SVT, morbid obesity, presenting with dizziness, lightheadedness. Symptoms began Wednesday and continued to the next day with shortness of breath. She was found to be in new onset afib RVR. TSH normal. cardio was consulted. TTE normal EF. Her home toprol was increased from 25 to 50mg daily. She is currently rate controlled. No a candidate for AC due to history of HHT. She feels well today and wishes to go home. d/w cardio CAM, ok for discharge. vitals stable. Labs showing mild hypomagnesemia which was replaced. Atrial Fibrillation with RVR, new onset #Hereditary hemorrhagic telangiectasia * CHADS-VASC score 6 * Anticoagulation contraindicated d/t hx HHT; no active bleeding currently; Hgb 10 - at baseline * DVT prophylaxis via SCDs d/t high risk GI bleed * monitor H&H #Hypomagnesemia * replete and monitor #Diastolic HF Chronic HFpEF. Not in acute CHF Continue home diuretic #Hypertension -BP stable. resume home regimen upon discharge #Dyslipidemia * Continue home statin #Sleep Apnea #Asthma * Adherent to CPAP at home, no supplemental oxygen * CPAP nightly ordered while inpatient * Continue home Anoro inhaler for asthma control #Diabetes Type II * Home home metformin * SSI while inpatient for goal BSG 110-140; continue home Lantus 50 units BID; adjust SSI as needed * current A1C 5.1% #Depression * Continue home lexapro #H/o parathyroidectomy * History of hypercalcemia with partial parathyroidectomy * Mild calcium elevation on lab workup to 11.1-> will need outpatient follow up DVT Ppx: SCDs- anticoagulation contraindicated for history of HHT Code status: Full PCP: Gricel Das PA-C Dispo: PCU I spent a total of 42 minutes coordinating, documenting, and providing care for this patient excluding time spent in the performance of separately billed services. This included personally reviewing all current laboratories and i maging studies, medical reconciliation, outpatient chart review and discussion with specialists Notes For Next Care Provider Medication Changes From Visit toprol increased to 50 daily Admission HPI Per Admitting Provider Patient is a 74 year old F with a past medical history of Type II DM, acquired hypothyroidism, dyslipidemia, JANE, asthma, hereditary hemorrhagic telangiectasia, HTN, nonrheumatic MV stenosis, Chronic diastolic HF, paroxysmal SVT, morbid obesity, presenting with dizziness, lightheadedness. Symptoms began Wednesday and continued to the next day with shortness of breath, nausea, headache, double vision, increased urination, and mild confusion. Patient is on insulin and her blood sugar was normal at the time. She thought her shortness of breath was related to be carrots, as she was also feeling hot at the time, and thought her symptoms related to asthma. Today, she went to [facility] and sent here for concerns of Afib. History of HHT and without anticoagulation. Denies fever, chills, weight loss, hearing changes, chest pain, swelling, urinary concerns, vomiting, diarrhea, joint swelling/pain, ambulation difficulty, falls, skin rashes, lesions, bleeding, bruising. In the emergency department, patient was tachycardic to 140's with dizziness. EKG showing Afib RVR with vent rate 148 bpm, QTc 467. Lopressor 5 mg x 3 given for rate control. Repeat EKG showing Afib with rate 97 bpm, QTc 408. Trop elevation to 137 most likely demand ischemia as patient has been symptomatic for 2 days. Repeat Trop 165. Cardiology consulted in the ED. I discussed the case with Dr. Navarro and per his recommendation, rate control achieved with Lopressor 5mg IV. Plan for transition to oral Lopressor for continued rate control. CHADS-VASC score 6; however, patient is not a candidate for anticoagulation given history of HHT and carries a very high risk of GI bleed. Hemoglobin 10.1 and at baseline currently. It was decided to forego heparin at this time for high risk of bleeding. Upon lab workup, Magnesium noted to be low at 1.6 and replaced with 1 gm Mag Sulfate by ED provider. An additional 2 gm Mag ordered. Given the patient's report of double vision with dizziness and mild confusion, additional imaging was obtained for rule out stroke as the patient was not on anticoagulation outpatient. Head CT was obtained showing chronic small vessel ischemic disease, otherwise unremarkable. Chest Xray showed Mild CHF. NAD on exam. Echocardiogram was ordered. History obtained primarily from the patient and via hospitalization record. External chart review obtained from [facility]. Discharge Exam Vitals and labs reviewed General: Well appearing, NAD HEENT: EOMI, PERRLA Neck: Supple Cardiac: RRR no rubs gallops or murmurs Lungs: CTA no rhonchi wheezing or rales Abd: S NT ND BS positive : Deffered MSK: Full ROM. No obvious deformities Ext: No Edema cyanosis Skin: Warm, Dry Neuro: AOx3 No focal deficits. Psych: Normal Mood Updated Medication List Medication Instructions Recorded Confirmed Type escitalopram oxalate 10 mg tablet 10 mg PO QAM 03/04/24 03/12/25 History insulin glargine 100 unit/mL (3 50 unit subcut AMPM 03/04/24 03/12/25 History mL) subcutaneous pen (Lantus Solostar U-100 Insulin) semaglutide 1 mg/dose (4 mg/3 mL) 1 mg subcut WK 03/04/24 03/12/25 History subcutaneous pen injector (Ozempic) tolterodine 4 mg capsule,extended 4 mg PO QAM 03/04/24 03/12/25 History release 24 hr atorvastatin 20 mg tablet (Lipitor) 20 mg PO DAILY 03/12/25 03/12/25 History azelastine 137 mcg (0.1 %) nasal 1 spray intranasal AMHS 03/12/25 03/12/25 History spray brinzolamide 1 %-brimonidine 0.2 % 1 drp OPR TID 03/12/25 03/12/25 History eye drops,suspension (Simbrinza) cholecalciferol (vitamin D3) 25 25 mcg PO AMHS 03/12/25 03/12/25 History mcg (1,000 unit) capsule (Vitamin D3) ferrous sulfate 325 mg (65 mg 325 mg PO AC 03/12/25 03/12/25 History iron) tablet furosemide 20 mg tablet 10 mg PO QAM 03/12/25 03/12/25 History ipratropium 0.5 mg-albuterol 3 mg 3 ml inhalation .EVERY 4-6 HOURS 03/12/25 03/12/25 History (2.5 mg base)/3 mL nebulization PRN COUGHING,WHEEZING OR SOB soln ipratropium 20 mcg-albuterol 100 1 puff inhalation Q6 PRN 03/12/25 03/12/25 History mcg/actuation mist for inhalation wheezing,cough or SOB (Combivent Respimat) losartan 100 mg tablet (Cozaar) 100 mg PO DAILY 03/12/25 03/12/25 History metformin 1,000 mg tablet 1,000 mg PO BIDM 03/12/25 03/12/25 History metoprolol succinate 25 mg 25 mg PO QAM 03/12/25 03/12/25 History tablet,extended release 24 hr montelukast 10 mg tablet 10 mg PO QAM 03/12/25 03/12/25 History multivit-iron 18 mg-folic acid 400 1 tab PO DAILY 03/12/25 03/12/25 History mcg-calcium 500 mg-minerals tablet (Daily Multiple For Women) netarsudil 0.02 % eye drops 1 drp OPR QPM 03/12/25 03/12/25 History (Rhopressa) pantoprazole 40 mg tablet,delayed 40 mg PO DAILYBB 03/12/25 03/12/25 History release prednisone 10 mg tablet 5 mg PO QAM 03/12/25 03/12/25 History terazosin 10 mg capsule 10 mg PO HS 03/12/25 03/12/25 History timolol maleate 0.25 % eye drops 1 drp OPR QAM 03/12/25 03/12/25 History trazodone 50 mg tablet 50 mg PO HS 03/12/25 03/12/25 History umeclidinium 62.5 mcg-vilanterol 1 ea inhalation DAILY 03/12/25 03/12/25 History 25 mcg/actuation powdr for inhalation (Anoro Ellipta) valacyclovir 1 gram tablet 1,000 mg PO Q12 PRN [place] 03/12/25 03/12/25 History (Valtrex) metoprolol succinate 50 mg 50 mg PO QAM 30 days #30 tabs 03/14/25 Rx tablet,extended release 24 hr Hospital Stay Data Consultations 03/12/25 15:18 ED Decision to Admit Stat 03/12/25 20:33 Consult Cardiology Routine Diagnostic Imagining Performed 03/12/25 16:25 CT head/brain wo con Stat Pending Results Patient Have Any Pending Studies at Discharge: No Discharge Instructions Given to Patient (Per Discharging Provider) Please follow up with your PCP and rear admiral as outpatient. Total Time Total Time Spent Total Time Spent (In Minutes): 42
[2025-03-14 11:55] VITALS: BP 133/74; TEMP 98.6; O2SAT 92
[2025-03-14 13:05] VITALS: PULSE 94
[2025-03-14] MEDS ORDERED: BRINZOLAMIDE (AZOPT) OPS 10 ML BTL OP SCH (14:00)
[2025-03-14] MEDS ORDERED: BRIMONIDINE TARTRATE 0.2% 5ML OP SCH (14:00)
--- NOTE | 2025-03-14 14:55 | Cardiology Progress Note ---
Date of Service March 14, 2025 Assessment & Plan (1) Atrial fibrillation with rapid ventricular response: Plan: 74-year-old female with a history of chronic diastolic heart failure, hypertension, type 2 diabetes mellitus, dyslipidemia, obstructive sleep apnea. admitted to [facility] with new onset afib RVR. [id number] score is at least 5 for risk factors of age over 75 (2 points) female sex, hypertension, diabetes. The patient however has a history of hereditary hemorrhagic telangiectasia syndrome and has baseline anemia, hemoglobin typically around 10 g/dL. Most recent colonoscopy was performed in October, revealing a few nonbleeding colonic angiodysplastic lesions consistent with her history. The patient is therefore felt to be at high risk for bleeding complication and will therefore hold off on systemic anticoagulation. Ongoing rate control recommended. overnight, HR's improved with metoprolol tartrate. For ease of medication use at home, will transition this to metoprolol succinate this morning at 50 mg (home dose was 25 mg). Increase to metoprolol succinate 50 mg in Am and 25 mg in PM Magnesium supplemented. 2 aditional grams given this morning. Discharge on 400 mg daily Echo with preserved LVEF, no significant valvular disease. Will arrange hospital f/u with cardio arrange outpatient monitor to assess HR's at home. Case discussed with Dr. Sergei Antony PA-C Department of Cardiology, [facility] This chart was completed in part utilizing Speech Voice Recognition Software. Grammatical errors, random word insertions, pronoun errors, and incomplete sentences are an occasional consequence of this system due to software limitations, ambient noise, and hardware issues. Any formal questions or concerns about the content, text, or information contained within the body of this dictation should be directly addressed to the provider for clarification. Admission and Anticipated Discharge Date Admission Date: March 12, 2025 Supervising Physician Co-Signing Physician Notes I have personally performed a history and physical examination on the patient. I have reviewed the advance practitioner's documentation, and I agree with, and take responsibility for the plan of care. 74-year-old female with history of chronic diastolic heart failure, hypertension and dyslipidemia presents with new onset atrial fibrillation with rapid ventricular response. History of hereditary hemorrhagic telangiectasia syndrome with baseline anemia, hemoglobin 10 g/dL. Patient high risk for bleeding complication. Relative contraindication to anticoagulation at this time. Recommend rate control strategy with metoprolol. Increase dose to 50 mg in the morning, 25 mg in the evening. No further inpatient cardiac testing at this time. Outpatient cardiology follow-up in 2 to 4 weeks. Ronan aMi DO, [facility] Subjective Patient resting in bed. Feels well. wants to go home. HR overnight were well controlled with afib. Slightly elevated upon ambulation and out of bed. Review of Systems Review of Systems: All systems reviewed & are unremarkable except as noted in HPI & below Physical Exam Physical Exam: General: no acute distress and stated age Eyes: conjunctiva are pink and non-injected, sclera clear Neck: normal jugular venous pulse, no hepatojugular reflux Chest: normal shape and normal respiratory effort Lungs: clear to auscultation and percussion Cardiac Exam: - irregularly irregular. Slightly tachycardic. no murmurs, rubs, o r gallops, no jugular venous distention Abdomen: abdomen soft, non-tender, no abnormal masses and no hepatosplenomegaly Musculoskeletal: no gait disturbance, no weakness Extremities: no edema and no cyanosis Neuro:awake, conversant, follows commands, no focal motor deficits Psych: appropriate affect and insight. Results & Data Vital Signs (Past 12 Hours) Vital Signs Temp Pulse Pulse Pulse Resp BP Pulse Ox 03/14/25 13:00 37.0 C 94 H 101 H 20 133/74 92 03/14/25 11:54 37.0 C 101 H 20 133/74 92 03/14/25 08:00 03/14/25 07:59 36.5 C 84 20 123/71 93 03/14/25 03:34 36.9 C 89 18 143/85 H 96 03/14/25 03:22 87 17 94 O2 Del Method 03/14/25 13:00 03/14/25 11:54 Room Air 03/14/25 08:00 CPAP 03/14/25 07:59 Room Air 03/14/25 03:34 CPAP 03/14/25 03:22 Laboratory Results Comprehensive Metabolic Panel 03/14/25 Range/Units 05:57 Sodium 140 (136-145) mmol/L Potassium 3.9 (3.5-5.1) mmol/L Chloride 103 (98-107) mmol/L Carbon Dioxide 29 (21-32) mmol/L BUN 16 (6-23) mg/dl Creatinine 0.91 (0.6-1.2) mg/dl Glucose 103 H (70-99(Fasting)) mg/dl Calcium 10.7 H (8.6-10.3) mg/dl Intake and Output 03/13/25 03/14/25 03/14/25 22:59 06:59 14:59 Intake Total 610 / 1550 240 / 1550 195.833 / 195.833 Balance 610 / 1550 240 / 1550 195.833 / 195.833 Intake: IV 195.833 / 195.833 Magnesium Sulfate / D5w 1 gm In 195.833 / 195.833 100 ml @ 50 mls/hr IV Q2H ANTONIO Rx#:[id number] Oral 610 / 1450 240 / 1450 Other: # Unmeasured Voids 2 2 Weight 113.7 kg 113.7 kg Weight Measurement Method Built in [facility] Patient Weight 03/15/25 06:59 Weight 113.7 kg Diagnostic Findings Telemetry reviewed: Afib with controlled rates over night 90's. PG Care Time/CCT Total # of Minutes Spent Total Time Spent with Patient: Total time spent is greater than 50% in coordination of care (as documented) at patient's floor/unit and/or counseling patient: 30 minutes Coding Level of Care Code 93822 SUB INP/OBS CARE 3/50MIN Diagnoses Atrial fibrillation with rapid ventricular response I48.91
--- NOTE | 2025-03-15 16:48 | Electrocardiogram Report ---
Test Reason : Blood Pressure : */* mmHG Vent. Rate : 148 BPM Atrial Rate : * BPM P-R Int : * ms QRS Dur : 88 ms QT Int : 298 ms P-R-T Axes : * -50 89 degrees QTcB Int : 467 ms Atrial fibrillation with rapid ventricular response Left axis deviation Inferior infarct , age undetermined Anterior infarct , age undetermined Abnormal ECG When compared with ECG of 26-Jun-2015 06:58, Atrial fibrillation has replaced Sinus rhythm Vent. rate has increased by 60 bpm Anterior infarct is now Present Inferior infarct is now Present Confirmed by Joo Wright ([id number]) on 03/15/2025 4:47:45 PM Referred By: Confirmed By: Joo Wright
--- NOTE | 2025-03-16 07:45 | Electrocardiogram Report ---
Test Reason : Blood Pressure : */* mmHG Vent. Rate : 97 BPM Atrial Rate : * BPM P-R Int : * ms QRS Dur : 94 ms QT Int : 322 ms P-R-T Axes : * -49 52 degrees QTcB Int : 408 ms Atrial fibrillation Left axis deviation Low voltage QRS Cannot rule out Anterior infarct (cited on or before 12-Mar-2025) Abnormal ECG When compared with ECG of 12-Mar-2025 14:25, (unconfirmed) Vent. rate has decreased by 51 bpm Confirmed by Joo Wright ([id number]) on 03/16/2025 7:45:04 AM Referred By: [facility] Confirmed By: Joo Wright
== END 2025-03-14 14:59 | disposition home or self-care (01) | DRG 309 ==
LOC: ED 14:07 → SUATTDRO 16:34 → EDINP 16:34 → 4W 20:34